=== PATIENT | female | born 1965 | race Caucasian/White ===

== ENCOUNTER → 2017-07-13 | Day surgery (SDC) | payer BC ==
[2017-07-09 12:01] VITALS: Ht 162.6 cm; Wt 93.2 kg
[~2017-07-13] VITALS: Ht 162.6 cm; Wt 93.2 kg
[~2017-07-13] MED LIST: 500ML BSSPLUS 0.5ML EPI1:1000 IRRIG ONE; ACETAMINOPHEN 325 MG TAB PO PRN; AMLO-114 PO; ATOR-22 PO; ATROPINE SULFATE 0.1 MG/ML 5ML SYR IV PRN; ATROPINE SULFATE 1% OP OINT PER APPLICATION CHARGE ONE; ATROPINE SULFATE 1% OP SOLN 2 ML BTL ONE; BSS FLUSH ONE; BUPIVACAINE HCL 0.75% 10 ML AMP/VIAL ONE; CANA1TAB3 PO; CARV6.252 PO; CEFAZOLIN SOD 1 GM VIAL ONE; CYM/30 PO; DEXAMETHASONE SOD INJ 4 MG/ML VIAL ONE; DULO60CA44 PO; EpINEphrine INJ 1MG/ML AMP 1 MG/ML AMP ONE; FENTANYL CITRATE INJ 50 MCG/1 ML 2 ML VIAL IV PRN; FENTANYL CITRATE INJ 50 MCG/1 ML 2 ML VIAL ONE; FRS/40 PO; GLIP-197 PO; HYALURONIDASE HUMAN 150 UNIT/ML INJ ONE; LACTATED RINGER'S 1000ML 500 ML IV SCH; LIDOCAINE 2% 20 MG/ML 5ML SYR IV ONE; LIDOCAINE HCL 2% 2 ML VIAL (20MG/ML) ONE; LINA1TAB PO; LISI40TA PO; METF-384 PO; MIDAZOLAM HCL 1 MG/ML 2ML VIAL ONE; NEOMYCIN/POLYMYX/DEXAMETH OP OINT PER APP CHARGE ONE; OCUCOAT 1 ML SOLN IO ONE; ONDANSETRON INJ 2 MG/ML 2 ML VIAL IV PRN; ONDANSETRON INJ 2 MG/ML 2 ML VIAL ONE; POVIDONE-IODINE OP SOLN (SURGERY CNTR CHARGING ONLY) ONE; PROPARACAINE 0.5% OP SOLN PER DROP CHARGE OPR SCH; PROPOFOL IV EMULSION 10 MG/ML 20 ML VIAL IV ONE; TIMOLOL MALEATE 0.5% OP SOLN PER DROP CHARGE ONE
[2017-07-13] MEDS: PHENYLEPHRINE HCL 2.5% OP SOLN PER DROP CHARGE OPR SCH ×2 (07:13→07:24)
[2017-07-13] MEDS: TROPICAMIDE 1% OP SOLN PER DROP CHARGE OPR SCH ×2 (07:14→07:25)
--- NOTE | 2017-07-13 07:52 | History & Physical Bridge - [place] ---
H&P Re-Evaluation Bridge Note: Pt has diabetic retinopathy right eye and is having vitrectomy right eye. I have examined the patient, reviewed the History & Physical and in the interval since the performance of the History & Physical I have noted the following changes of clinical significance: No changes noted
--- NOTE | 2017-07-13 08:55 | [facility] Operative Report ---
Operative Report Date of Service Jul 13, 2017. Operative Report PREOPERATIVE DIAGNOSIS: Diabetic retinopathy with vitreous hemorrhage, tractional retinal detachment, right eye. POSTOPERATIVE DIAGNOSIS: same. PROCEDURE: 1. Pars plana vitrectomy, 23 gauge. 2. Membrane segmentation and peeling. 3. Endolaser. All to the right eye. CPT CODE: 73011 SURGEON: Perez Asher D.O. COMPLICATIONS: None. ESTIMATED BLOOD LOSS: None. SPECIMENS: None. ANESTHESIA: Retrobulbar block and MAC INDICATIONS FOR PROCEDURE: Surgery is indicated to decrease risk of vision loss and potentially improve vision. CONSENT: The risks, benefits and alternatives were discussed with the patient including but not limited to decreased visual acuity, failure to achieve desired results, loss of the eye, infection, pain, glaucoma, lens changes, retinal tears, retinal detachment, the need for more procedures, drooping of the eyelid, blindness, and double vision. The patient is aware of risks and consents to the surgery. Consent is signed and on the chart. OPERATION AND FINDINGS: The patient was brought to the operating room where the patient was identified by name, date, and medical record number. The surgical site was confirmed with the informed written consent. The patient was sedated by the anesthesiology team after which a 50:50 mixture of 2% lidocaine and 0.75% bupivacaine with hyaluronidase was administered in a standard retrobulbar fashion. A total of 4 ml was administered without difficulty. The patient was then prepped and draped in the usual sterile manner for retinal surgery. A wire lid speculum was placed and an Venkat 23-gauge trocar cannula system was employed. The inferior temporal trocar cannula was first placed in an angled fashion 3.75mm posterior to the surgical limbus and the infusion cannula was inserted into this cannula after which the intravitreal position was verified prior to turning the infusion on. Two more trocar cannulas were then inserted in an angled fashion, one in the superior temporal, and one in the superior nasal quadrant both 3.75mm posterior to the surgical limbus. A light pipe and vitrector were then introduced into the eye and the BIOM wide angle viewing system was brought into place. Posterior inspection revealed proliferative diabetic retinopathy with focal tractional retinal detachment along the superior arcade with neovascularization tags superior and inferior to the temporal arcades as well as nasal to the optic nerve. There was also noted previous laser treatment. Standard core vitrectomy was performed and the vitreous was segmented from the fibrovascular membranes and their peripheral traction. The vitreous was insured to be totally detached from the posterior pole with the aid of the vitrector and the areas of traction were segmented with the vitrector. Intraocular cautery was applied to theses areas. Endolaser was used to perform fill-in brennan retinal photocoagulation. At this point scleral depression was performed for 360 degrees and no retinal tears or detachments were noted. The trocar cannulas were then removed and found to be water tight. The intraocular pressure was found to be within normal limits by palpation and subconjunctival injections of Kefzol and dexamethasone were administered inferiorly and superiorly. The wire lid speculum was removed. Maxitrol and timolol were applied to the surface of the eye. A light patch and shield were taped over the surface of the eye and the patient left the Operating Room in stable condition having tolerated the procedure well. DISPOSITION: The patient has an appointment the following morning in the Ophthalmology Clinic. The patient is to call immediately if there are any problems overnight. I attest to the content of the Intraoperative Record and any orders documented therein. Any exceptions are noted below.
--- NOTE | 2017-07-13 08:56 | [facility] Post Operative Brief Note ---
Immediate Operative Summary Operative Date Jul 13, 2017. Pre-Operative Diagnosis Right Eye Diabetic Retinopathy Post-Operative Diagnosis Same Procedure(s) Performed Right Eye 23 Gauge Vitrectomy with Laser Surgeon Dr. Asher Wood Car Builder Surgeon(s) None Estimated Blood Loss 0 Findings Consistent with Post-Op Diagnosis Specimens None Anesthesia Type MAC
--- NOTE | 2017-07-13 09:00 | Discharge Instructions-SurgCtr ---
Discharge Instructions Date of Service Jul 13, 2017. Visit Reason for Visit: Right Eye Diabetic Retinopathy Discharge Discharge Diagnosis / Problem: same Discharge Goals Goal(s): Improve function Medications Stopped Medications Name(s): metformin stopped 3 days ago Activity Recommendations Activity Limitations: per Instructions/Follow-up section Anesthesia . Post Anesthesia Instructions: If you have had General Anesthesia or IV Sedation: * Do not drive today. * Resume driving when surgeon permits. * Do not make important decisions or sign legal documents today. * Call surgeon for: 1. Temperature elevations greater than 101 degrees F. 2. Uncontrollable pain. 3. Excessive bleeding. 4. Persistent nausea and vomiting. 5. Medication intolerance (nausea, vomiting or rash). * For nausea and vomiting use only clear liquids such as: tea, soda, bouillon until nausea subsides, then gradually increase diet as tolerated. * If you have any concerns or questions, call your surgeon's office. If physician is unavailable and it is an emergency, call 911 or go to the nearest emergency room. . Instructions / Follow-Up Instructions / Follow-Up * May take Tylenol if needed for discomfort. * Do NOT remove eye shield. * NO straining, heavy lifting (>15 pounds) or bending below waist. * Avoid getting water or soap directly into operative eye. * Do NOT rub eye. If you experience increasing eye pain not relieved by medication, please contact us immediately at [phone]. If you are unable to reach someone at the above number, call [phone] and ask to speak with the EYE DOCTOR STABLE CLEANER. Inform them that you are a Dr. Asher patient who had recent surgery. Diet Recommendations Home Diet: resume previous diet Procedures Procedures Performed: Right Eye 23 Gauge Vitrectomy with Laser Pending Studies Studies pending at discharge: no Medical Emergencies . Who to Call and When: Medical Emergencies: If at any time you feel your situation is an emergency, please call 911 immediately. . Non-Emergent Contact Non-Emergency issues call your: Gas Station Supervisor . . "Provider Documentation" section prepared by Perez Asher. .
--- NOTE | 2017-07-13 09:16 | Anesthesia Progress Nt - [facility] ---
Anesthesia Post Op Note Date & Time Jul 13, 2017 at 09:16 Vital Signs Pain Intensity: 0 Vital Signs Past 12 Hours Date Time Temp Pulse Resp B/P (MAP) Pulse Ox O2 Delivery O2 Flow Rate FiO2 07/13/17 08:59 36.3 68 16 129/83 (98) 96 Room Air 07/13/17 07:04 36.5 72 16 135/84 (101) 95 Room Air Notes Mental Status: alert / awake / arousable, participated in evaluation Pt Amnestic to Procedure: Yes Nausea / Vomiting: adequately controlled Pain: adequately controlled Airway Patency, RR, SpO2: stable & adequate BP & HR: stable & adequate Hydration State: stable & adequate Anesthetic Complications: no major complications apparent
[2017-07-13 09:17] VITALS: BP 123/85; PULSE 70; O2SAT 95
== END | disposition home or self-care (01) ==
LOC: X.SURG 06:50
PROVIDERS: ATTEND Ophthalmology
DX: E11.319 Type 2 diabetes mellitus with unspecified diabetic retinopathy without macular edema (principal); H43.11 Vitreous hemorrhage, right eye; H33.41 Traction detachment of retina, right eye; I10 Essential (primary) hypertension; Z79.899 Other long term (current) drug therapy; F17.200 Nicotine dependence, unspecified, uncomplicated; E66.9 Obesity, unspecified; Z68.35 Body mass index [BMI] 35.0-35.9, adult; Z83.3 Family history of diabetes mellitus; Z80.9 Family history of malignant neoplasm, unspecified; Z82.0 Family history of epilepsy and other diseases of the nervous system

== ENCOUNTER → 2017-07-27 | Day surgery (SDC) | payer BC ==
[2017-07-23 09:33] VITALS: Ht 162.6 cm; Wt 93.2 kg
[~2017-07-27] VITALS: Ht 162.6 cm; Wt 93.2 kg
[~2017-07-27] MED LIST changes: -CYM/30 PO; -DULO60CA44 PO; +EpHEDrine SULFATE INJ 50 MG/ML AMP IV PRN; -FENTANYL CITRATE INJ 50 MCG/1 ML 2 ML VIAL IV PRN; +INDOCYANINE GREEN 25 MG/10 ML ONE; -LIDOCAINE 2% 20 MG/ML 5ML SYR IV ONE; +LIDOCAINE MPF 4% INJ ONE; -ONDANSETRON INJ 2 MG/ML 2 ML VIAL IV PRN; +PROPARACAINE 0.5% OP SOLN PER DROP CHARGE OPL SCH; -PROPARACAINE 0.5% OP SOLN PER DROP CHARGE OPR SCH; -PROPOFOL IV EMULSION 10 MG/ML 20 ML VIAL IV ONE; +PROPOFOL IV EMULSION 10 MG/ML 20 ML VIAL ONE
[2017-07-27] MEDS: PHENYLEPHRINE HCL 2.5% OP SOLN PER DROP CHARGE OPL SCH ×2 (08:42→08:52)
[2017-07-27] MEDS: TROPICAMIDE 1% OP SOLN PER DROP CHARGE OPL SCH ×2 (08:43→08:53)
--- NOTE | 2017-07-27 10:17 | History & Physical Bridge - [place] ---
H&P Re-Evaluation Bridge Note: pt has diabetic retinopathy left eye and is having vitrectomy left eye. I have examined the patient, reviewed the History & Physical and in the interval since the performance of the History & Physical I have noted the following changes of clinical significance: No changes noted
--- NOTE | 2017-07-27 11:26 | [facility] Post Operative Brief Note ---
Immediate Operative Summary Operative Date Jul 27, 2017. Pre-Operative Diagnosis Left Eye Diabetic Retinopathy Post-Operative Diagnosis Same Procedure(s) Performed Left Eye 23 Gauge Vitrectomy with Laser Surgeon Dr. Asher Finish Carpenter Surgeon(s) None Estimated Blood Loss 0 Findings Consistent with Post-Op Diagnosis Specimens None Anesthesia Type MAC
[2017-07-27 11:28] VITALS: TEMP 36.5
--- NOTE | 2017-07-27 11:35 | [facility] Operative Report ---
Operative Report Date of Service Jul 27, 2017. Operative Report PREOPERATIVE DIAGNOSIS: Diabetic retinopathy with vitreous hemorrhage with tractional retinal detachment, left eye. POSTOPERATIVE DIAGNOSIS: same. PROCEDURE: 1. Pars plana vitrectomy, 23 gauge. 2. Membrane peeling/ segmentation. 3. Endolaser. All to the left eye. CPT CODE: 66901 SURGEON: Perez Asher D.O. COMPLICATIONS: None. ESTIMATED BLOOD LOSS: None. SPECIMENS: None. ANESTHESIA: Retrobulbar block and MAC INDICATIONS FOR PROCEDURE: Surgery is indicated to decrease risk of vision loss and potentially improve vision. CONSENT: The risks, benefits and alternatives were discussed with the patient including but not limited to decreased visual acuity, failure to achieve desired results, loss of the eye, infection, pain, glaucoma, lens changes, retinal tears, retinal detachment, the need for more procedures, drooping of the eyelid, blindness, and double vision. The patient is aware of risks and consents to the surgery. Consent is signed and on the chart. OPERATION AND FINDINGS: The patient was brought to the operating room where the patient was identified by name, date, and medical record number. The surgical site was confirmed with the informed written consent. The patient was sedated by the anesthesiology team after which a 50:50 mixture of 2% lidocaine and 0.75% bupivacaine with hyaluronidase was administered in a standard retrobulbar fashion. A total of 4 ml was administered without difficulty. The patient was then prepped and draped in the usual sterile manner for retinal surgery. A wire lid speculum was placed and an Venkat 23-gauge trocar cannula system was employed. The inferior temporal trocar cannula was first placed in an angled fashion 3.75mm posterior to the surgical limbus and the infusion cannula was inserted into this cannula after which the intravitreal position was verified prior to turning the infusion on. Two more trocar cannulas were then inserted in an angled fashion, one in the superior temporal, and one in the superior nasal quadrant both 3.75mm posterior to the surgical limbus. A light pipe and vitrector were then introduced into the eye and the BIOM wide angle viewing system was brought into place. Posterior inspection revealed partially regressed proliferative diabetic retinopathy and with neovascularization tags superior and inferior to the temporal arcades with associated tractional retinal detachment. 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 Standard core vitrectomy was performed and the vitreous was insured to be totally detached from the posterior pole with the aid of the vitrector. the areas of regressed neovascularization were segmented with the vitrector. Endolaser was used to perform fill-in brennan retinal photocoagulation. The areas of traction were segmented and peeled with the vitrector and intraocular cautery was used to stop any bleeding from active neovascularization. At this point scleral depression was performed for 360 degrees and no retinal tears or detachments were noted. The trocar cannulas were then removed and found to be water tight. The intraocular pressure was found to be within normal limits by palpation and subconjunctival injections of Kefzol and dexamethasone were administered inferiorly and superiorly. The wire lid speculum was removed. Maxitrol was applied to the surface of the eye. A light patch and shield were taped over the surface of the eye and the patient left the Operating Room in stable condition having tolerated the procedure well. DISPOSITION: The patient has an appointment the following morning in the Ophthalmology Clinic. The patient is to call immediately if there are any problems overnight. I attest to the content of the Intraoperative Record and any orders documented therein. Any exceptions are noted below.
--- NOTE | 2017-07-27 11:46 | Discharge Instructions-SurgCtr ---
Discharge Instructions Date of Service Jul 27, 2017. Visit Reason for Visit: Left Eye Diabetic Retinopathy Discharge Discharge Diagnosis / Problem: same Discharge Goals Goal(s): Improve function Medications Stopped Medications Name(s): Metfromin stopped . Activity Recommendations Activity Limitations: per Instructions/Follow-up section Anesthesia . Post Anesthesia Instructions: If you have had General Anesthesia or IV Sedation: * Do not drive today. * Resume driving when surgeon permits. * Do not make important decisions or sign legal documents today. * Call surgeon for: 1. Temperature elevations greater than 101 degrees F. 2. Uncontrollable pain. 3. Excessive bleeding. 4. Persistent nausea and vomiting. 5. Medication intolerance (nausea, vomiting or rash). * For nausea and vomiting use only clear liquids such as: tea, soda, bouillon until nausea subsides, then gradually increase diet as tolerated. * If you have any concerns or questions, call your surgeon's office. If physician is unavailable and it is an emergency, call 911 or go to the nearest emergency room. . Instructions / Follow-Up Instructions / Follow-Up * May take Tylenol if needed for discomfort. * Do NOT remove eye shield. * NO straining, heavy lifting (>15 pounds) or bending below waist. * Avoid getting water or soap directly into operative eye. * Do NOT rub eye. If you experience increasing eye pain not relieved by medication, please contact us immediately at [phone]. If you are unable to reach someone at the above number, call [phone] and ask to speak with the EYE DOCTOR HEALTHCARE RECEPTIONIST. Inform them that you are a Dr. Asher patient who had recent surgery. Diet Recommendations Home Diet: resume previous diet Procedures Procedures Performed: Left Eye 23 Gauge Vitrectomy with Laser Pending Studies Studies pending at discharge: no Medical Emergencies . Who to Call and When: Medical Emergencies: If at any time you feel your situation is an emergency, please call 911 immediately. . Non-Emergent Contact Non-Emergency issues call your: Hide Trimmer . . "Provider Documentation" section prepared by Perez Asher. .
--- NOTE | 2017-07-27 11:56 | Anesthesiology Progress Note ---
Anesthesia Post Op Note Date & Time Jul 27, 2017 at 11:55 Vital Signs Pain Intensity: 0 Vital Signs Past 12 Hours Date Time Temp Pulse Resp B/P (MAP) Pulse Ox O2 Delivery O2 Flow Rate FiO2 07/27/17 11:28 36.5 83 16 148/84 (105) 94 Room Air 07/27/17 08:33 36.6 74 16 154/102 (119) 96 Room Air Notes Mental Status: alert / awake / arousable, participated in evaluation Nausea / Vomiting: adequately controlled Pain: adequately controlled Airway Patency, RR, SpO2: stable & adequate BP & HR: stable & adequate Hydration State: stable & adequate Anesthetic Complications: no major complications apparent
[2017-07-27 11:57] VITALS: BP 136/84; PULSE 77; O2SAT 95
== END | disposition home or self-care (01) ==
LOC: X.SURG 08:20
PROVIDERS: ATTEND Ophthalmology
DX: E11.3592 Type 2 diabetes mellitus with proliferative diabetic retinopathy without macular edema, left eye (principal); H43.12 Vitreous hemorrhage, left eye; H33.42 Traction detachment of retina, left eye; E66.9 Obesity, unspecified; K21.9 Gastro-esophageal reflux disease without esophagitis; E78.5 Hyperlipidemia, unspecified; I10 Essential (primary) hypertension; Z79.899 Other long term (current) drug therapy; Z79.84 Long term (current) use of oral hypoglycemic drugs; Z87.891 Personal history of nicotine dependence

== ENCOUNTER 2024-01-23 17:28 | Inpatient (IN) ==
--- NOTE | 2024-01-23 17:42 | Emergency Department Note ---
Impression & Plan Acute hypoxic respiratory failure, Pleural effusion, Congestive heart failure ED Provider Note NAME: ORLY SAMANIEGO AGE: 58 SEX: F : 1965 ARRIVES VIA: Ambulance INFORMANT: Patient ED PROVIDER(S): Elbert Tinoco DO CHIEF COMPLAINT: Shortness of breath HPI: Patient is a 58-year-old female who presents to the ER for shortness of breath which started just prior to arrival. Per EMS she was found at heart side without her oxygen in place. She chronically wears 3 L. She was placed on 3 L nasal cannula and transported to the ER. Patient is completely demented and denies all complaints. Discussed with heart side staff who notes that yesterday patient became short of breath and was started on 3 L nasal cannula. They gave her steroids and Rocephin. No cough that she is aware of. ADDITIONAL HISTORY OBTAINED: Per HPI Chronic Medical/Social Conditions Affecting Care: Per HPI PAST MEDICAL HISTORY:See Below PAST SURGICAL HISTORY:See Below FAMILY HISTORY:See Below SOCIAL HISTORY:See Below HOME MEDICATIONS:See Below ALLERGIES:See Below VITALS:See Below PHYSICAL EXAMINATION: GENERAL: Sitting up in bed, alert, chronically ill-appearing, disheveled on 3 L nasal cannula EYE EXAM: normal conjunctiva. PERRL and EOM's grossly intact. OROPHARYNX: no exudate, no erythema, lips, buccal mucosa, and tongue normal and mucous membranes are moist NECK: supple, no nuchal rigidity, no adenopathy, non-tender LUNGS: Diminished at the bases. Normal chest wall mechanics HEART: no murmurs, S1 normal and S2 normal ABDOMEN: abdomen soft, non-tender, PEG tube in place, normo-active bowel sounds, no masses, no rebound or guarding. UPPER EXTREMITIES: upper extremities are grossly normal. LOWER EXTREMITIES: Mild edema in the bilateral lower extremities. Calves are equal bilaterally. NEURO EXAM: Sitting up in bed oriented to person but not place or time moving all extremities. MEDICAL DECISION MAKING: Patient is a 58-year-old female who presents ER for the above-stated complaint. IV was established and blood work was obtained. Labs show no significant leukocytosis or anemia. BMP with a elevated sodium of 146. Creatinine 1.7. LFTs bilirubin was unremarkable. Troponin negative. Viral panel was negative. Chest x-ray with bilateral pleural effusions. Patient remained on nasal cannula in the ER. She was given Lasix. Discussed with the hospitalist for further evaluation management treatment. Just prior to admission patient pulled out her PEG tube. I contacted intermediate and they note that she has had it the whole time since she has been there but they are unsure of how long she has had it. I contacted GI and they would prefer that we try to replace it now. Used a Shafer to hold its place until we are able to obtain an 18 [place]ones[place] G-tube from the OR. This was inserted without difficulty. There was bleeding at the site as patient had pulled out her previous which was intact. GI will follow this tomorrow morning. Hospitalist was updated. Patient was admitted on nasal cannula. Consults/Care Managements Discussions: Per [facility] Triage Nursing notes reviewed. Limited review of prior medical records performed Vital Signs: reviewed and remarkable for no significant abnormalities Differential diagnosis: Differential diagnoses includes but is not limited to pneumonia, bronchitis, COPD/Asthma exacerbation, pneumothorax, pulmonary embolism, congestive heart failure, acute coronary syndrome ER treatment provided: See below Diagnostics interpreted by me include EKG and cardiac monitoring as listed below: -Cardiac Monitoring: An order was placed for continuous cardiac monitoring. The monitor shows a rate of 70 with sinus rhythm. -ECG: Sinus rhythm rate 72 Normal axis No PVCs QTc 448 Poor baseline in V6 and V3 -Laboratory studies:Interpreted by me as stated above in [facility] and shown below. Imaging studies: Xrays: As interpreted by me: Portable AP upright 1 view shows bilateral effusions CTs show: none Procedures: G-tube replacement Patient was demented and consequently unable to obtain consent but this was replaced emergently as I did not want to hold closing. After discussion with gastroenterology 18 [place]onese G-tube was lubricated and slid into gastric opening. Balloon was inflated with 20 cc of saline. Stopper was slid against abdominal wall. This was not tight but rather loose. It was placed with the end of the stopper at the 18 [place] writing as the depth marker was not visible due to the thick abdominal wall. Patient tolerated the procedure without difficulty. This was confirmed via KUB with [facility]. Critical Care: I have personally spent 35 minutes of critical care time in the direct management of this patient. This includes bedside care, interpretation of diagnostic studies, and testing, discussion with consultants, patient, and family members, and other required patient management activities. This 35 minutes is in excess of all separately billable procedures. Past Med/Surg History Problem List (Updated 01/23/24 @ 22:39 by Elbert Tinoco DO) Congestive heart failure (Acute) Acute hypoxic respiratory failure (Acute) HTN (hypertension) Pleural effusion (Acute) Acute exacerbation of congestive heart failure Encounter for pre-operative examination Medical History (Updated 01/23/24 @ 22:39 by Elbert Tinoco DO) Diabetes mellitus, type 2 Vitreous hemorrhage Surgical History History of esophagogastroduodenoscopy (EGD) History of colonoscopy History of hysterectomy Family History Father Cancer Mother Cancer Social History Smoking Status: Unknown if ever smoked Second Hand Exposure: No; Do You Dip or Chew Tobacco: No; Hx Alcohol Use: No Hx Substance Use: No Preferred Language: Frisian Communication Ability: Effective I&C Tech Required: No Beliefs That Will Affect Care: None Current Living Situation: Spouse Feels Safe at Home: Yes Assistive Devices: Denture - Upper and Denture - Lower Allergies Allergies Allergy/AdvReac Type Severity Reaction Status Date / Time No Known Drug Allergies Allergy Unknown . Verified 10/25/18 08:01 Home Meds Home Medications Medication Instructions Recorded Confirmed carvedilol 12.5 mg tablet 25 mg PO Q12H 10/11/18 01/23/24 duloxetine 30 mg capsule,delayed 30 mg PO DAILY 10/11/18 01/23/24 release lisinopril 40 mg tablet 40 mg PO DAILY 10/11/18 01/23/24 bisacodyl 10 mg rectal suppository 10 mg ME Q48H PRN Constipation 01/23/24 01/23/24 (Dulcolax (bisacodyl)) ceftriaxone 1 gram solution for 1 g IM Q24H 01/23/24 01/23/24 injection dextrose 40 % oral gel See Rx Instructions .Route .COMPLEX 01/23/24 01/23/24 famotidine 20 mg tablet 20 mg PO DAILY 01/23/24 01/23/24 glucagon 1 mg solution for 1 mg IM DIRECTED PRN 01/23/24 01/23/24 injection (Glucagon Emergency Kit) Hypoglycemia guaifenesin 1,200 mg tablet, 400 mg PO Q12H 01/23/24 01/23/24 extended release 12 hr (Mucinex) haloperidol 2 mg tablet 2 mg PO Q12H 01/23/24 01/23/24 insulin glargine 100 unit/mL (3 5 unit subcut HS 01/23/24 01/23/24 mL) subcutaneous pen (Lantus Solostar U-100 Insulin) insulin lispro 100 unit/mL See Rx Instructions .Route .COMPLEX 01/23/24 01/23/24 subcutaneous pen (Humalog KwikPen (U-100) Insulin) ipratropium 0.5 mg-albuterol 3 mg 3 ml inhalation Q4H 01/23/24 01/23/24 (2.5 mg base)/3 mL nebulization soln lisinopril 40 mg tablet 40 mg PO DAILY 01/23/24 01/23/24 magnesium hydroxide 400 mg/5 mL 30 ml PO Q48H PRN Constipation 01/23/24 01/23/24 oral suspension (Milk of Magnesia) magnesium oxide 400 mg PO DAILY 01/23/24 01/23/24 metformin 500 mg tablet 500 mg PO BID 01/23/24 01/23/24 polyethylene glycol 3350 17 gram 17 g PO DAILY 01/23/24 01/23/24 oral powder packet prednisone 20 mg tablet 40 mg PO DAILY 01/23/24 01/23/24 rivastigmine 4.6 mg/24 hour 4.6 mg transdermal DAILY 01/23/24 01/23/24 transdermal patch (Exelon Patch) sodium phosphates 19 gram-7 118 ml ME Q48H PRN Constipation 01/23/24 01/23/24 gram/118 mL enema (Enema) valproic acid (as sodium salt) 250 250 mg PO Q12H 01/23/24 01/23/24 mg/5 mL oral solution Results & Data (ED) Vital Signs Vital Signs - 24 hr 01/23/24 17:34 01/23/24 17:46 01/23/24 17:46 Temperature 36 C L Temperature Source Axillary Pulse Rate 84 Pulse Rate [Apical] Respiratory Rate 97 H Blood Pressure 172/109 H Blood Pressure [Left Arm] Blood Pressure Mean 130 Blood Pressure Mean [Left Arm] Pulse Oximetry 20 L 98 Oxygen Delivery Method Nasal Cannula Nasal Cannula Oxygen Flow Rate 3 3 Sepsis Recent Fever Within 48 Hours No Sepsis New/Unexplained Change in Mental Status N/A Sepsis Action Taken by Nursing No Action Required Pulse Oximetry Post Tiitration 98 01/23/24 17:48 01/23/24 18:35 01/23/24 20:16 Temperature Temperature Source Pulse Rate 71 Pulse Rate [Apical] 72 76 Respiratory Rate 20 18 Blood Pressure Blood Pressure [Left Arm] 178/91 H 175/97 H Blood Pressure Mean Blood Pressure Mean [Left Arm] 120 123 Pulse Oximetry 98 93 Oxygen Delivery Method Nasal Cannula Nasal Cannula Oxygen Flow Rate 3 3 Sepsis Recent Fever Within 48 Hours Sepsis New/Unexplained Change in Mental Status Sepsis Action Taken by Nursing Pulse Oximetry Post Tiitration 01/23/24 21:40 Temperature Temperature Source Pulse Rate 73 Pulse Rate [Apical] Respiratory Rate Blood Pressure Blood Pressure [Left Arm] Blood Pressure Mean Blood Pressure Mean [Left Arm] Pulse Oximetry Oxygen Delivery Method Oxygen Flow Rate Sepsis Recent Fever Within 48 Hours Sepsis New/Unexplained Change in Mental Status Sepsis Action Taken by Nursing Pulse Oximetry Post Tiitration Laboratory Data 01/23/24 18:02 01/23/24 18:02 Lab Results 01/23/24 01/23/24 Range/Units 18:02 20:11 WBC 7.33 (4.8-10.8) K/ul RBC 4.59 (4.20-5.40) M/uL Hgb 13.2 (12.0-16.0) g/dl Hct 43.9 (37.0-47.0) % MCV 95.6 (80.0-100.0) fL MCH 28.8 (25.0-34.0) pg MCHC 30.1 L (32.0-36.0) g/dL RDW Std Deviation 59.6 H (36.4-46.3) fL RDW Coeff of Laura 17.2 H (11.5-14.5) % Plt Count 347 (130-400) K/uL MPV 9.9 (9.4-12.4) fL Immature Gran % (Auto) 1.0 % Neut % (Auto) 87.6 % Lymph % (Auto) 6.5 % [place] % (Auto) 4.8 % Eos % (Auto) 0.0 % Baso % (Auto) 0.1 % Neut # (Auto) 6.42 (1.40-6.50) K/uL Lymph # (Auto) 0.48 L (1.20-3.40) K/uL [place] # (Auto) 0.35 (0.11-0.59) K/uL Eos # (Auto) 0.00 (0.00-0.50) K/uL Baso # (Auto) 0.01 (0.00-0.20) K/uL Immature Gran # (Auto) 0.07 (0.01-0.20) K/uL Sodium 146 H (136-145) mmol/L Potassium 4.6 (3.5-5.1) mmol/L Chloride 104 (98-107) mmol/L Carbon Dioxide 34 H (21-32) mmol/L Anion Gap 8 (3-11) BUN 31 H (6-23) mg/dl Creatinine 1.75 H (0.6-1.2) mg/dl Est Cr Clr Drug Dosing 33.5 ml/min eGFR 33.36 BUN/Creatinine Ratio 17.7 (10-20) Glucose 273 H (70-99(Fasting)) mg/dl Calcium 9.9 (8.6-10.3) mg/dl Total Bilirubin 0.3 (0.2-1.0) mg/dl AST 9 L (13-39) U/L ALT 10 (7-52) U/L Alkaline Phosphatase 137 H (34-104) U/L Troponin I High Sens 12.1 (0-14) pg/ml Total Protein 7.2 (6.0-8.3) gm/dl Albumin 3.7 (3.4-5.0) gm/dl Globulin 3.5 (2.5-4.0) gm/dl Albumin/Globulin Ratio 1.1 (0.9-2) Lipase 5 L (11-82) U/L Adenovirus (PCR) Not Detected (NotDetected) B. pertussis DNA (PCR) Not Detected (NotDetected) B.parapertussis DNA PCR Not Detected (NotDetected) C. pneumoniae DNA (PCR) Not Detected (NotDetected) Coronavirus OC43 (PCR) Not Detected (NotDetected) Coronavirus HKU1 (PCR) Not Detected (NotDetected) Coronavirus 229E (PCR) Not Detected (NotDetected) SARS-CoV-2 (PCR) Not Detected (NotDetected) Coronavirus NL63 (PCR) Not Detected (NotDetected) Human Metapneumovir PCR Not Detected (NotDetected) Influenza Type A (PCR) Not Detected (NotDetected) Influenza Type B (PCR) Not Detected (NotDetected) M. pneumoniae (PCR) Not Detected (NotDetected) Parainfluenza 1 (PCR) Not Detected (NotDetected) Parainfluenza 2 (PCR) Not Detected (NotDetected) Parainfluenza 3 (PCR) Not Detected (NotDetected) Parainfluenza 4 (PCR) Not Detected (NotDetected) RSV (PCR) Not Detected (NotDetected) Entero/Rhino (PCR) Not Detected (NotDetected) Administered Medications Discontinued Medications Furosemide (Furosemide 40 Mg/4 Ml Vial) 40 mg IV NOW STA Stop: 01/23/24 18:45 Last Admin: 01/23/24 19:18 Dose: 40 mg Documented By: NII Imaging Data Radiologist's Impression: Chest X-Ray 01/23/24 17:39 XR chest 1V portable HISTORY: 58 years-old Female Chest pain, nonspecific COMPARISON: None TECHNIQUE: AP view the chest FINDINGS: Cardiac silhouette is enlarged. Pulmonary vascular congestion with interstitial opacities. No pneumothorax. [id number]-sa-[id number] left with large right pleural effusions. Bibasilar consolidation with right lung volume loss. IMPRESSION: 1. Cardiomegaly with pulmonary edema. 2. Right greater than left layering pleural effusions with bibasilar consolidation. ACT 112: Negative or not required by law. The above report was generated using voice recognition software. It may contain grammatical, syntax or spelling errors. Electronically signed by: Sudhakar Ellis M.D. 01/23/2024 6:14 PM Discharge Plan Visit Data Chief Complaint: Shortness of Breath/Dyspnea Stated Complaint: HYPOXIA ED Provider: Elbert Tinoco Discharge Problem: Acute hypoxic respiratory failure, Pleural effusion, Congestive heart failure Forms Stand Alone Forms: My [facility] Prescriptions Prescriptions: No Action carvedilol 12.5 mg Tablet 25 mg PO Q12H lisinopril 40 mg Tablet 40 mg PO DAILY duloxetine 30 mg Capsule,Delayed Release(Dr/Ec) 30 mg PO DAILY metformin 500 mg tablet 500 mg PO BID ipratropium-albuterol 0.5 mg-3 mg(2.5 mg base)/3 mL solution for nebulization 3 ml INHALATION Q4H polyethylene glycol 3350 17 gram Powder In Packet 17 g PO DAILY prednisone 20 mg Tablet 40 mg PO DAILY dextrose [Insta-Glucose] 40 % Gel See Rx Instructions .ROUTE .COMPLEX Rx Instructions: place and dissolve 1 application buccally as needed for hypoglycemia ceftriaxone 1 gram recon soln 1 g IM Q24H famotidine 20 mg tablet 20 mg PO DAILY magnesium hydroxide [Milk of Magnesia] 400 mg/5 mL Suspension 30 ml PO Q48H PRN (Reason: Constipation) valproic acid (as sodium salt) 250 mg/5 mL solution 250 mg PO Q12H bisacodyl [Dulcolax (bisacodyl)] 10 mg Suppository 10 mg ME Q48H PRN (Reason: Constipation) Enema 19-7 gram/118 mL Enema 118 ml ME Q48H PRN (Reason: Constipation) Glucagon Emergency Kit (human) 1 mg Recon Soln 1 mg IM DIRECTED PRN (Reason: Hypoglycemia) haloperidol 2 mg tablet 2 mg PO Q12H lisinopril 40 mg tablet 40 mg PO DAILY insulin lispro [Humalog KwikPen Insulin] 100 unit/mL insulin pen See Rx Instructions .ROUTE .COMPLEX Rx Instructions: per sliding scale 1f 151 -200=3 units; 201 -250 =6 units; 251 -300 =9; 301 - 400 =12 units; subcutaneously before meals and at bedtime insulin glargine [Lantus Solostar U-100 Insulin] 100 unit/mL (3 mL) insulin pen 5 unit SUBCUT HS rivastigmine [Exelon Patch] 4.6 mg/24 hour Patch 24 Hour 4.6 mg TRANSDERMAL DAILY guaifenesin [Mucinex] 1,200 mg Tablet Extended Release 12hr 400 mg PO Q12H magnesium oxide 400 mg magnesium Tablet 400 mg PO DAILY Referrals Referrals: Berlin Ledezma PA-C [Primary Care Provider] - Discharge Problem: Congestive heart failure Qualifiers: Heart failure type: unspecified Heart failure chronicity: unspecified Qualified Code(s): I50.9 - Heart failure, unspecified
--- OUTSIDE RECORDS SUMMARY | 2024-01-23 17:42 | External Medical Summary | Summary of Care ---
Author Name Unknown Organization [facility] Address [address] [place] [address] Phone [phone] Care Team Providers Care Candy Cutter Hand Name Role Phone Hermann Shields MD Primary Care Provider + [phone] Reason for Visit * Reason Comments Chronic Kidney Disease (CKD) Encounter Details Date Type Department Care Team (Late st Contact Info) Description 01/08/2024 10:40 AM EDT Office Visit Nephrology, [address] [address] Meño Junior MD [address] [place] [address] Stage 3a chronic kidney disease (HCC)*; HTN, goal below 140/90 Allergies No known active allergiesdocumented as of this encounter (statuses as of 01/08/2024) Medications Medication Sig Dispensed Refills Start Date End Date Status Ferrous Gluconate 324 (37.5 Fe) MG Tablet Take 2 Tablets by mouth daily. 0 Active Omeprazole 20 MG Oral Capsule Delayed Release (PriLOSEC) Take 1 Capsule by mouth in the morning. Active Atorvastatin Calcium 40 MG Oral Tablet (Lipitor) Take 1 Tablet by mouth at bedtime. Active Magnesium Oxide 400 MG Oral Capsule Take 1 Capsule by mouth in the morning. 30 Capsule 5 3 Active DULoxetine HCl 30 MG Oral Capsule Delayed Release Particles (Cymbalta) Take 1 Capsule by mouth in the morning. Active Carvedilol 25 MG Oral Tablet (Coreg) Take 1 Tablet by mouth in the morning and 1 Tablet before bedtime. 60 Tablet 1 4 Active oxygen IN GAS Administer 2 L/min(Oxygen) into nostril continuous. 4 Active Torsemide 100 MG Oral Tablet (Demadex) Take 1 Tablet by mouth in the morning. 30 Tablet 1 4 Active Additional Information Patient not taking.Reported on 01/08/2024 busPIRone HCl 5 MG Oral Tablet (Buspar) Take 2 Tablets by mouth in the morning and 2 Tablets before bedtime. Active Polyethylene Glycol 3350 17 GM Oral Packet (MiraLax) Take 1 Packet by mouth in the morning and 1 Packet before bedtime. Active LORazepam 0.5 MG Oral Tablet (Ativan) Take 1 Tablet by mouth every 6 hours as needed. Active Aspirin 81 MG Oral Tablet Chewable Take 1 Tablet by mouth in the morning. 90 Tablet 4 Active Lisinopril 40 MG Oral Tablet Take 1 Tablet by mouth in the morning. Active Rivastigmine 4.6 MG/24HR Transdermal Patch 24 Hour (Exelon) Place 1 Patch topically on the skin in the morning. Active Insulin Glargine 100 UNIT/ML Subcutaneous Solution (Lantus) Inject 15 Units under the skin at bedtime. 10 mL 4 Active Water For Irrigation, Sterile (WATER FLUSH) TF Administer 50 mL into PEG tube every 6 hours. 1 Each 4 Active Nutren 2.0 Oral Liquid Administer 250 mL into PEG tube in the morning and 250 mL at noon and 250 mL before bedtime. 15952 mL 4 12/16/19 25 Active Valproate Sodium 250 MG/5ML Oral Solution (Depakene) Administer 5 mL into PEG tube in the morning and 5 mL before bedtime. 300 mL 4 Active Famotidine 20 MG Oral Tablet (Pepcid) Take 1 Tablet by mouth every evening. 4 Active Insulin Aspart FlexPen 100 UNIT/ML Subcutaneous Solution Pen-injector 4 Active Haloperidol Lactate 5 MG/ML Injection Solution Inject 2.5 mg intravenously as needed for Anxiety. Active Ipratropium-Albut maulik 0.5-2.5 (3) MG/3ML Inhalation Solution (Duoneb) Inhale 3 mL by mouth every 4 hours as needed for Shortness of Breath or Cough. Active Haloperidol 2 MG Oral Tablet (Haldol) Take 1 Tablet by mouth in the morning and 1 Tablet before bedtime. 60 Tablet 4 01/28/20 Active amLODIPine Besylate 5 MG Oral Tablet (Norvasc) Take 1 Tablet by mouth in the morning. 90 Tablet 3 Active Additional Information Patient not taking.Reported on 01/08/2024 Tamsulosin HCl 0.4 MG Oral Capsule (Flomax) Take 1 Capsule by mouth in the morning. 90 Capsule 3 4 01/08/20 Discontinued documented as of this encounter (statuses as of 01/08/2024) Active Problems Problem Noted Date Diagnosed Date Pleural effusion, bilateral 12/20/2023 Hyperammonemia 12/17/2023 Valproic acid toxicity 12/17/2023 Accidental poisoning by anticonvulsant Overdose, accidental or unintentional, initial e ncounter 12/16/2023 Dementia with agitation 12/12/2023 Acute cystitis without hematuria 11/30/2023 Acute on chronic diastolic (congestive) heart fa ilure 11/09/2023 AMS (altered mental status) 11/06/2023 Fever 11/06/2023 Encounter for feeding tube placement 09/21/2023 History of CVA (cerebrovascular accident) [address] 09/01/2023 Vomiting 08/13/2023 PEG (percutaneous endoscopic gastrostomy) status 08/11/2023 Nocturnal hypoxia 08/08/2023 Expressive aphasia 08/05/2023 Goals of care, counseling/discussion 08/05/2023 Palliative care encounter 08/05/2023 Failure to thrive in adult 08/04/2023 Difficulty swallowing 08/04/2023 Stroke 07/28/2023 Moderate pulmonary hypertension 07/07/2023 PARUL (acute kidney injury) 07/04/2023 Pleural effusion 07/04/2023 Dementia of frontal lobe type 07/03/2023 Neurocognitive disorder 07/03/2023 Anemia associated with stage 3 chronic renal maura lure 07/02/2023 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, with psychotic disturbance 07/02/2023 Fall at home 07/01/2023 Acute respiratory failure with hypoxia History of spontaneous intra parenchymal intracranial hemorrhage 07/01/2023 Non compliance w medication regimen 07/01/2023 Food insecurity 11/05/2020 Overview: Per [facility] Protocol Stage 3b chronic kidney disease 09/11/2020 Overview: Per CKD protocol Type 2 diabetes mellitus wit h hyperosmolarity without coma, without long-term current use of insulin 08/07/2020 Overview: Per CKD protocol 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 Chronic diastolic heart failure 12/20/2019 Obesity, Class III, BMI 40-49.9 (morbid obesity) 10/28/2019 Type 2 diabetes mellitus wit h hemoglobin A1c goal of less than 7.0% 09/18/2019 Hypertension, uncontrolled 09/18/2019 HLD (hyperlipidemia) 09/18/2019 documented as of this encounter (statuses as of 01/08/2024) Resolved Problems Problem Noted Date Diagnosed Date Resolved Date Acute on chronic respiratory failure with hypoxia 12/19/2023 12/24/2023 Aspiration pneumonia 09/05/2023 024 Elevated troponin 09/02/2023 09/05/2023 Atypical chest pain 09/01/2023 09/05/19 24 Malnutrition of moderate degree 08/05/2023 09/02/2023 Delirium due to general medical condition 07/03/2023 07/05/2023 Acute on chronic heart failu re with preserved ejection fraction (HFpEF) 07/01/2023 09/05/2023 Somnolence 07/01/2023 07/02/2023 UTI (urinary tract infection) 07/01/2023 07/05/2023 Acute metabolic encephalopathy 02/02/2023 02/11/2023 Intraparenchymal hemorrhage of brain 02/01/2023 07/02/2023 Hypertensive emergency 02/01/202302/05 Intraventricular hemorrhage 02/01/2023 02/11/2023 Dehydration 08/01/2020 07/02/2023 Diabetes mellitus with stage 3 chronic kidney disease 03/12/2020 08/09/2020 Overview: Per CKD protocol Encounter for examination fo r normal comparison and control in clinical research program 03/05/2020 06/04/2021 Overview: [facility]: A Randomized Controlled Trial (Project # [id number]). The [facility] [employer] program provides food-insecure diabetics with healthy food for their entire household (2 meals/ day X 5 days/week). The program also provides education on food preparation, healthy living, and diabetes self management. The research measures the effects of the program on patient health and wellbeing. Subject will begin the [facility] program February 2020 Contact Information: Braille Coder: Dr. Sourav Loco ([phone]) CRC: Sharlene Ortiz ([phone]) RA: Gracie Tejeda ([phone]) Diagnosis changed due to Research Module. Go to Snapshot for study details. 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 07/02/2023 Seizure-like activity 09/18/20192022 documented as of this encounter (statuses as of 01/08/2024) Immunizations Name Administration Dates Next Due COVID-19, MRNA-LNP, 23-24, P F, 50 MCG/0.5 mL, 12 YRS AND ABOVE, IM (MODERNA-Spikevax) 05/14/2021,09/06/2020,08/06/2020 documented as of this encounter Social History Tobacco Use Types Packs/Day Years Used Date Smoking Tobacco: Former Cigarettes 1 10 Smokeless Tobacco: Never Comments:quit Alcohol Use Standard Drinks/Week Comments No 0 (1 standard drink = 0.6 oz pur e alcohol) Utilities Answer Date Recorded Do you have trouble paying y our heating, water, or electric bill? (Adult - for ages 18 years and over) Not on file 09/15/2023 Is your family able to pay t he heat, water, or electric bill? (Household - for ages 0-17 years) Not on file 09/15/2023 Does your family have access to good internet? (Household - for ages 0-17 years) Not on file 09/15/2023 Social Connections Answer Date Recorded How often do you feel lonely or isolated from those around you? (Adult - for ages 18 years and over) Not on file 09/15/2023 Sex and Gender Information Value Date Recorded Sex Assigned at Not on file Gender Identity Not on file Sexual Orientation Not on file Job Start Date Occupation Industry Not on file Not on file Not on file documented as of this encounter Last Filed Vital Signs Vital Sign Reading Time Taken Comments Blood Pressure 156/87 01/08/2024 10:51 AM EDT Pulse 68 01/08/2024 10:51 AM EDT Temperature 36.6 C (97.9 F) 01/08/2024 10:51 AM E DT Respiratory Rate 18 01/08/2024 10:51 AM EDT Oxygen Saturation 91% 01/08/2024 10:51 AM EDT Inhaled Oxygen Concentration - - Weight 78.5 kg (173 lb) 01/08/2024 10:51 AM EDT Height - - Body Mass Index 29.7 12/29/2023 2:53 PM EDT documented in this encounter Functional Status Functional Status Response Date of Assess ment Are you deaf or do you have serious difficulty h earing? No 11/06/2023 Are you blind or do you have serious difficulty seeing, even when wearing glasses? No 11/06/2023 Do you have serious difficul ty walking or climbing stairs? (5 years old or older) Yes 11/06/2023 Do you have difficulty dress ing or bathing? (5 years old or older) Yes 11/06/2023 Because of a physical, menta l, or emotional condition, do you have difficulty doing errands alone such as visiting a doctor s office or shopping? (15 years old or older) Yes 11/06/19 Cognitive Status Response Date of Assessm ent Because of a physical, menta l, or emotional condition, do you have serious difficulty concentrating, remembering, or making decisions? (5 years old or older) Yes 11/06/2023 documented as of this encounter Progress Notes * Meño Junior MD - 01/08/2024 10:48 AM EDT REASON FOR VISIT: CKD HPI: Priya Clark is a 58 year old female seen in follow-up. Past medical history includes CKD stage 3,Nephrolithiasis, type 2 diabetes for over 10yrs with retinopathy and neuropathy, CVA with expressive aphasia, diastolic CHF, chronic inman catheter, recent PEG tube placement due to failure to thriveand [facility]. She was also found to have a right-sided proteinaceous cyst measuring 1.8 cm on MRI kidney in February 2019. Patient recently hospitalized after pulling out PEG tube. Last visit was September 2023. Patient hospitalized on 12/18/2023 with accidental Depakote overdose. Patient improved with supportive management and did not require dialysis. Patient gets intermittently agitated. 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 Chronic diastolic heart failure ([facility]) 12/20/2019 Chronic kidney disease, stage 3b ([facility]) 09/11/2020 Per CKD protocol CKD (chronic kidney disease) stage 3, GFR 30-59 ml/min ([facility]) 10/28/2019 Diabetes type 2, controlled ([facility]) Hyperlipidemia Hypertension Malnutrition of moderate degree ([facility]) 08/05/2023 PDR (proliferative diabetic retinopathy) ([facility]) Vitreous hemorrhage, right ([facility]) Review of Systems: Unable to obtain due to altered mental status and agitation Family History Problem Relation Name Age of Onset Diabetes Sister Parkinsonism Brother Cancer Mother Cancer Father Social History Socioeconomic History Marital status: Spouse name: Not on file Number of children: Not on file Years of education: Not on file Highest education level: Not on file Occupational History Not on file Tobacco Use Smoking status: Former Current packs/day: 1.00 Average packs/day: 1 pack/day for 10.0 years (10.0 ttl pk-yrs) Types: Cigarettes Smokeless tobacco: Never Tobacco comments: quit 1990s Substance and Sexual Activity Alcohol use: No Drug use: No Sexual activity: Yes Partners: Male control/protection: Surgical Other Topics Concern Not on file Social History Narrative Not on file Social Determinants of Health Financial Resource Strain: Not on file Food Insecurity: Not on file Transportation Needs: Not on file Social Connections: Unknown (09/15/2023) Social Connections How often do you feel lonely or isolated from those around you? (Adult - for ages 18 years and over): Not on file Housing Stability: Not on file Current Outpatient Medications Medication Sig Dispense Refill Magnesium Oxide 400 MG Oral Capsule Take 1 Capsule by mouth in the morning. 30 Capsule 5 DULoxetine HCl 30 MG Oral Capsule Delayed Release Particles (Cymbalta) Take 1 Capsule by mouth in the morning. Carvedilol 25 MG Oral Tablet (Coreg) Take 1 Tablet by mouth in the morning and 1 Tablet before bedtime. 60 Tablet 1 oxygen IN GAS Administer 2 L/min(Oxygen) into nostril continuous. Polyethylene Glycol 3350 17 GM Oral Packet (MiraLax) Take 1 Packet by mouth in the morning and 1 Packet before bedtime. LORazepam 0.5 MG Oral Tablet (Ativan) Take 1 Tablet by mouth every 6 hours as needed. Aspirin 81 MG Oral Tablet Chewable Take 1 Tablet by mouth in the morning. 90 Tablet 0 Lisinopril 40 MG Oral Tablet Take 1 Tablet by mouth in the morning. Rivastigmine 4.6 MG/24HR Transdermal Patch 24 Hour (Exelon) Place 1 Patch topically on the skin in the morning. Insulin Glargine 100 UNIT/ML Subcutaneous Solution (Lantus) Inject 15 Units under the skin at bedtime. 10 mL 0 Nutren 2.0 Oral Liquid Administer 250 mL into PEG tube in the morning and 250 mL at noon and 250 mLbefore bedtime. 82829 mL 0 Valproate Sodium 250 MG/5ML Oral Solution (Depakene) Administer 5 mL into PEG tube in the morning and 5 mL before bedtime. 300 mL 0 Famotidine 20 MG Oral Tablet (Pepcid) Take 1 Tablet by mouth every evening. Insulin Aspart FlexPen 100 UNIT/ML Subcutaneous Solution Pen-injector Haloperidol Lactate 5 MG/ML Injection Solution Inject 2.5 mg intravenously as needed for Anxiety. Ipratropium-Albuterol 0.5-2.5 (3) MG/3ML Inhalation Solution (Duoneb) Inhale 3 mL by mouth every 4 hours as needed for Shortness of Breath or Cough. Haloperidol 2 MG Oral Tablet (Haldol) Take 1 Tablet by mouth in the morning and 1 Tablet before bedtime. 60 Tablet 0 Ferrous Gluconate 324 (37.5 Fe) MG Tablet Take 2 Tablets by mouth daily. (Patient not taking: Reported on 01/08/2024) Omeprazole 20 MG Oral Capsule Delayed Release (PriLOSEC) Take 1 Capsule by mouth in the morning. (Patient not taking: Reported on 01/08/2024) Atorvastatin Calcium 40 MG Oral Tablet (Lipitor) Take 1 Tablet by mouth at bedtime. (Patient not taking: Reported on 01/08/2024) Torsemide 100 MG Oral Tablet (Demadex) Take 1 Tablet by mouth in the morning. (Patient not taking: Reported on 01/08/2024) 30 Tablet 1 busPIRone HCl 5 MG Oral Tablet (Buspar) Take 2 Tablets by mouth in the morning and 2 Tablets beforebedtime. (Patient not taking: Reported on 01/08/2024) Water For Irrigation, Sterile (WATER FLUSH) TF Administer 50 mL into PEG tube every 6 hours. 1 Each0 amLODIPine Besylate 5 MG Oral Tablet (Norvasc) Take 1 Tablet by mouth in the morning. (Patient not taking: Reported on 01/08/2024) 90 Tablet 3 No current facility-administered medications for this visit. Filed Vitals: 01/08/24 1051 BP: 156/87 Pulse: 68 Resp: 18 Temp: 36.6 C (97.9 F) SpO2: 91% Weight: 78.5 kg (173 lb) PHYSICAL EXAM: GENERAL: Alert, in no acute distress. EYES: PERRL, conjunctivae anicteric. ENT: Mucous membranes moist, oropharynx clear. NECK: Supple, no JVD. LYMPH: No cervical or supraclavicular lymphadenopathy. LUNGS: Clear to auscultation bilaterally, no respiratory distress. CARDIAC: Regular rate and rhythm, normal S1/S2, no murmurs, rubs, or gallops. ABDOMEN: Soft, non-tender, non-distended, bowel sounds present. EXT/MSK: No clubbing, cyanosis, 1+ edema. SKIN: No rash, no jaundice. NEURO: No tremor, no asterixis. LABS/STUDIES: Recent Labs Units 12/30/23 0823 12/28/23 0457 12/25/23 0632 12/21/23 0605 SODIUM - [facility] mmol/L 143 146 145 144 POTASSIUM - [facility] mmol/L 4.3 4.0 4.3 3.8 CHLORIDE - [facility] mmol/L 106 109* 103 105 CO2 - [facility] mmol/L 30 33* 31 34* BUN - [facility] mg/dL 24* 26* 23* 26* CREATININE - [facility] mg/dL 1.3* 1.5* 1.4* 1.3* Recent Labs Units 12/30/23 0823 12/25/23 0632 12/21/23 0605 WBC K/uL 6.70 6.01 5.78 HGB g/dL 9.8* 11.2* 9.7* PLT K/uL 268 364 245 Recent Labs Units 12/30/23 0823 12/28/23 0457 12/25/23 0632 12/21/23 0605 12/20/23 0459 12/19/23 0513 12/18/23 1743 12/18/23 0620 12/17/23 0341 12/16/23 1728 07/04/23 0636 07/03/23 0531 CALCIUM - [facility] mg/dL 8.6 8.6 9.6 9.2 < > 9.2 < > 8.8 < > 9.7 < > 8.5 PHOSPHORUS - [facility] mg/dL -- 3.0 -- -- -- 2.8 -- 3.6 -- 3.4 < > -- 25-HYDROXY VITAMIN D - [facility] ng/mL -- -- -- -- -- -- -- -- -- -- -- 15* < > = values in this interval not displayed. Recent Labs Units 12/28/23 0457 12/01/23 0508 09/01/23 1414 HEMOGLOBIN A1C - [facility] % 8.7* 8.7* 9.2* Recent Labs Units 04/22/22 1014 MICROALBUMIN RATIO-OUTSIDE LAB ug/mg 2854* ASSESSMENT AND PLAN Priya was seen today for chronic kidney disease (ckd). Diagnoses and all orders for this visit: Stage 3a chronic kidney disease (HCC) Patient with CKD stage IIIA due to diabetes and hypertension. She has nephrotic range proteinuria. Recent creatinine of 1.3 and GFR of 48 mL/minute. She is euvolemic. Electrolytes are stable. Will optimize blood pressure diabetes control. Repeat BMP prior to next OV. HTN, goal below 140/90 Blood pressure is above target. Will start amlodipine 5 mg daily. Other orders - amLODIPine Besylate 5 MG Oral Tablet (Norvasc); Take 1 Tablet by mouth in the morning. (Patient not taking: Reported on 01/08/2024) Check-out note: Keep apr 20 appointment Meño Junior MD Nephrology, [address] [place] [address] This note was generated with the help of voice recognition software. Please excuse for errors. documented in this encounter Nursing Notes * Xochilt Mcdonald RN - 01/08/2024 10:56 AM EDT Dementia pt here from SNF accompanied by aide. Unable to answer questions. Will call for med list. documented in this encounter Plan of Treatment Upcoming Encounters Date Type Department Care Team (Late st Contact Info) Description 01/25/2024 10:00 AM EDT Office Visit Urology Jana Mccarthy [place] [address] [place] [address] Cee Azar PA-C [address] [place] [address] 03/08/2024 3:00 PM EST Office Visit Cardiology, [place] [address] [place] [address] [facility] Cabrera [facility] [address] [facility] [address] 04/05/2024 2:00 PM EST Office Visit Cardiology [place] [address] [place] [address] Sharlene Wylie PA-C [address] [facility] [address] 04/20/2024 11:00 AM EST Office Visit Nephrology, [facility] [address] [place] [address] Meño Junior MD [address] [facility] [place] [address] 05/18/2024 9:20 AM EST Office Visit Neurology, [address] [place] [address] Daysi Aquino MD [address] [facility], [place] [id number] Scheduled Procedures Name Priority Associated Diagnoses Date/Ti me COLONOSCOPY FLEXIBLE PROXIMAL DIAGNOSTIC Recall Diverticulosis Health Maintenance Due Date Last Done Comments Depression Screening 1977 Zoster Vaccines (1 of 2) 08/31/2015 COVID-19 Vaccine (2023-2 5 season) 2023 05/14/2021, 09/06/2020, 08/06/2020 Influenza Vaccine (FLU shot) (#1) 2023 Colonoscopy Discontinued 08/06/2018, 08/06/2018 Colorectal Cancer Screening Discontinued RETIRED - COLONOSCOPY-EVERY 5 YRS AGES 18-100 Discontinued 08/06/2018, 08/06/2018 Pap Smear Discontinued 05/23/2019, 08/26/2012 Diabetic Foot Exam Discontinued 04/26/2020 Diabetic Eye Exam Discontinued 11/20/2020, , 02/15/2020, Additional history exists Albumin/Creatinine Ratio Discontinued 023, 03/06/2021, 12/22/2019 Cologuard Discontinued Fecal Occult Blood Test Discontinued Sigmoidoscopy Discontinued documented as of this encounter Medical Devices Not on filedocumented as of this encounter Visit Diagnoses Diagnosis Stage 3a chronic kidney disease (HCC)- Primary HTN, goal below 140/90 Unspecified essential hypertension documented in this encounter Advance Directives Documents on File Type Date Recorded Patient Correction Officer Supervisor Expl anation POLST 12/01/2023 MISSING DATE, P ROVIDER SIGNATURE POLST 08/04/2023 MISSING DATE, P ROVIDER SIGNATURE * Full Code (Latest Code Status on File) Date Activated Date Inactivated Comments 12/16/2023 10:21 PM 12/21/2023 6:16 PM This order reflects the patients wishes and were consensually agreed upon. Question Answer Comments Discussion of Advance Direct jessica occurred with: Not Discussed due to patient's condition * Full Code Date Activated Date Inactivated Comments 12/16/2023 8:01 PM 12/16/2023 10:21 PM This order reflects the patients wishes and were consensually agreed upon. Question Answer Comments Discussion of Advance Directives occurred with: Patient * No Code Date Activated Date Inactivated Comments 11/30/2023 9:17 PM 12/04/2023 5:19 PM This order ref lects the patients wishes and were consensually agreed upon. Question Answer Comments Discussion of Advance Direct jessica occurred with: Not Discussed due to patient's condition Does the patient have a Living Will? Yes, in luis alberto rt and reviewed as current Does the patient have Health Care Power of Flosser? Yes, in chart and reviewed as current * Full Code Date Activated Date Inactivated Comments 11/07/2023 12:10 AM 11/11/2023 4:46 PM This order reflects the patients wishes and were consensually agreed upon. Question Answer Comments Discussion of Advance Directives occurred with: Patient * Full Code Date Activated Date Inactivated Comments 09/21/2023 5:02 PM 09/26/2023 2:22 PM This order r eflects the patients wishes and were consensually agreed upon. Question Answer Comments Discussion of Advance Direct jessica occurred with: Not Discussed due to patient's condition Care Teams Candy Cutter Hand Relationship Specialty Start Date End Date Hermann Shields MD [address] [place] [id number] PCP - General Family Medicine 12/24/23 documented as of this encounter
--- NOTE | 2024-01-23 18:15 | XRay Report ---
XR chest 1V portable HISTORY: 58 years-old Female Chest pain, nonspecific COMPARISON: None TECHNIQUE: AP view the chest FINDINGS: Cardiac silhouette is enlarged. Pulmonary vascular congestion with interstitial opacities. No pneumot horax. [id number] left with large right pleural effusions. Bibasilar consolidation with right lung volume loss. IMPRESSION: 1. Cardiomegaly with pulmonary edema. 2. Right greater than left layering pleural effusions with bibasilar consolidation. ACT 112: Negative or not required by law. The above report was generated using voice recognition software. It may contain grammatical, syntax o r spelling errors. Electronically signed by: Sudhakar Ellis M.D. 01/23/2024 6:14 PM
[2024-01-23 18:18] LABS: Basophils # (auto) 0.01 K/uL (0.00-0.20); Basophils % (auto) 0.1 %; Hematocrit (blood only) 43.9 % (37.0-47.0); Hemoglobin 13.2 g/dl (12.0-16.0); Immature Granulocytes # (auto) 0.07 K/uL (0.01-0.20); Lymphocytes # (auto) 0.48 K/uL (1.20-3.40); Lymphocytes % (auto) 6.5 %; Mean Corpuscular Hemoglobin 28.8 pg (25.0-34.0); Mean Corpuscular Hgb Conc 30.1 g/dL (32.0-36.0); Mean Corpuscular Volume 95.6 fL (80.0-100.0); Mean Platelet Volume 9.9 fL (9.4-12.4); Monocytes # (auto) 0.35 K/uL (0.11-0.59); Monocytes % (auto) 4.8 %; Neutrophils # (auto) 6.42 K/uL (1.40-6.50); Neutrophils % (auto) 87.6 %; Platelet Count 347 K/uL (130-400); RDW Coefficient of Variation 17.2 % (11.5-14.5); RDW Standard Deviation 59.6 fL (36.4-46.3); Red Blood Count 4.59 M/uL (4.20-5.40); White Blood Count 7.33 K/ul (4.8-10.8)
[2024-01-23 18:34] LABS: Albumin Globulin Ratio 1.1 (0.9-2); Albumin Level 3.7 gm/dl (3.4-5.0); BUN Creatinine Ratio 17.7 (10-20); Bilirubin,Total 0.3 mg/dl (0.2-1.0); Calcium 9.9 mg/dl (8.6-10.3); Creatinine Clr Calc Pharmacy 33.5 ml/min; Globulin 3.5 gm/dl (2.5-4.0); Potassium 4.6 mmol/L (3.5-5.1); Total Protein 7.2 gm/dl (6.0-8.3)
[2024-01-23 18:42] LABS: Troponin I High Sensitivity 12.1 pg/ml (0-14)
[2024-01-23] MEDS: FUROSEMIDE 40 MG/4 ML VIAL IV STA (19:18)
--- NOTE | 2024-01-23 20:01 | History & Physical Report ---
Date of Service January 23, 2024 Assessment & Plan (1) Diabetes mellitus, type 2: (2) Acute exacerbation of congestive heart failure: (3) Pleural effusion: (4) HTN (hypertension): Plan This is a 58 y/o female presenting for retirement with what appears to be exacerbation of CHF (unknown EF), PARUL; patient has also pulled out her PEG tube while in ER. 1) Exacerbation of CHF with pleural effusion, unknown EF -Admit to med surg tele -Monitor serial troponins -Perform echo TTE, no recent one in chart -Daily weights, strict I/O -Continue diuresis with IV 40 mg daily; titrate up appropriately -- may repeat CXR in 1-2 days to see if improvement of pleural effusion; do not believe thoracentesis is warranted at this time -Continue Coreg 12.5 mg PO for now -Cardiology consult if needed 2) PEG tube removed by patient -- ER has temporarily placed a Shafer catheter -Will keep patient NPO aside from essential medications -Consult GI in AM for possible replacement of tube 3) PARUL in setting of possible CKD; Cr 1.75 with baseline 1.3 or below -Will check UA -Will check urine Cr and Urea given patient is on Lasix for FE Urea -If not improving with diuresis, then will need further workup -Dose medications renally and avoid nephrotoxic medications 3) DM2 -Patient is NPO -Will place q6h accuchek and can get SSI if ser gluc elevated with goal 110-150 4) HTN -For now will continue just her beta clari as above -Will hold on Amlodipine and Lisinopril until confirmed 5) DVT PPx -- For now will place on SCDs only in case patient needs to go for procedure to replace PEG tube in AM; can place on Heparin/Lovenox after 6) Code Status -- Cannot obtain from patient or chart at this time; will keep full code until clarified History of Present Illness Chief Complaint: Brought in with Hypoxia Primary Care Provider: Berlin Ledezma Patient has dementia and cannot provide history, all of it is obtained from chart and from ER staff. This is a 58 y/o female with MHx signicant for DM2, HTN, HLD, CHF (unknown EF), with PEG tube in place, and apparently advanced dementia who is brought in from [facility] with hypoxia. Per report from NH, patient was noted to be SOB yesterday, and was started on 3L NC. She was apparently also given steroids and Rocephin. Today she was noted to not have her O2 in place, and was hypoxic and appeared to be having some more respiratory distress, so she was sent here by EMS. Patient has no c/c at this time. Not able to answer any questions. Of note, in ER patient did pull out her PEG tube. Allergies Allergy/AdvReac Type Severity Reaction Status Date / Time No Known Drug Allergies Allergy Unknown . Verified 10/25/18 08:01 Home Medications Medication Instructions Recorded Confirmed Type carvedilol 12.5 mg tablet 25 mg PO Q12H 10/11/18 01/23/24 History duloxetine 30 mg capsule,delayed 30 mg PO DAILY 10/11/18 01/23/24 History release lisinopril 40 mg tablet 40 mg PO DAILY 10/11/18 01/23/24 History Past Med/Surg History Problem List (Updated 01/23/24 @ 20:06 by Brayden Rose MD) HTN (hypertension) Pleural effusion Acute exacerbation of congestive heart failure Encounter for pre-operative examination Medical History (Updated 01/23/24 @ 20:06 by Brayden Rose MD) Diabetes mellitus, type 2 Vitreous hemorrhage Surgical History History of esophagogastroduodenoscopy (EGD) History of colonoscopy History of hysterectomy Family History Father Cancer Mother Cancer Social History Smoking Status: Unknown if ever smoked Second Hand Exposure: No; Do You Dip or Chew Tobacco: No; Hx Alcohol Use: No Hx Substance Use: No Preferred Language: Irish Communication Ability: Effective 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 There are some decreased breath sounds at bases and possibly some b/l crackles. Cardiovascular: RRR, no murmur, no edema Gastrointestinal (Abdomen): normal bowel sounds, soft, nontender, no hepatosplenomegaly Patient had PEG tube in place, but she removed it in ER. Musculoskeletal: no cyanosis or clubbing, extremities motor strength 5/5 does have 1++ b/l LE edema Neurologic: Cannot assess in detail because of her dementia. Psychiatric: Cannot assess in detail because of her dementia. Results & Data Results & Data Vital Signs (Past 12 Hours) Vital Signs Temp Pulse Pulse Resp BP BP Pulse Ox 01/23/24 18:35 72 20 178/91 H 98 01/23/24 17:48 71 01/23/24 17:46 98 01/23/24 17:46 01/23/24 17:34 36 C L 84 97 H 172/109 H 20 L O2 Del Method O2 Flow Rate 01/23/24 18:35 Nasal Cannula 3 01/23/24 17:48 01/23/24 17:46 Nasal Cannula 3 01/23/24 17:46 Nasal Cannula 3 01/23/24 17:34 Laboratory Results 01/23/24 18:02 WBC 7.33 RBC 4.59 Hgb 13.2 Hct 43.9 MCV 95.6 MCH 28.8 MCHC 30.1 L RDW Std Deviation 59.6 H RDW Coeff of Laura 17.2 H Plt Count 347 MPV 9.9 Immature Gran % (Auto) 1.0 Neut % (Auto) 87.6 Lymph % (Auto) 6.5 [place] % (Auto) 4.8 Eos % (Auto) 0.0 Baso % (Auto) 0.1 Neut # (Auto) 6.42 Lymph # (Auto) 0.48 L [place] # (Auto) 0.35 Eos # (Auto) 0.00 Baso # (Auto) 0.01 Immature Gran # (Auto) 0.07 Sodium 146 H Potassium 4.6 Chloride 104 Carbon Dioxide 34 H Anion Gap 8 BUN 31 H Creatinine 1.75 H Est Cr Clr Drug Dosing 33.5 eGFR 33.36 BUN/Creatinine Ratio 17.7 Glucose 273 H Calcium 9.9 Total Bilirubin 0.3 AST 9 L ALT 10 Alkaline Phosphatase 137 H Troponin I High Sens 12.1 Total Protein 7.2 Albumin 3.7 Globulin 3.5 Albumin/Globulin Ratio 1.1 Lipase 5 L Diagnostic Findings Chest X-Ray 01/23/24 17:39 XR chest 1V portable HISTORY: 58 years-old Female Chest pain, nonspecific COMPARISON: None TECHNIQUE: AP view the chest FINDINGS: Cardiac silhouette is enlarged. Pulmonary vascular congestion with interstitial opacities. No pneumothorax. Mwplp-[id number]-gvxydint left with large right pleural effusions. Bibasilar consolidation with right lung volume loss. IMPRESSION: 1. Cardiomegaly with pulmonary edema. 2. Right greater than left layering pleural effusions with bibasilar consolidation. ACT 112: Negative or not required by law. The above report was generated using voice recognition software. It may contain grammatical, syntax or spelling errors. Electronically signed by: Sudhakar Ellis M.D. 01/23/2024 6:14 PM ECG Additional Comments: NSR at 72 Some artifact noted in V3 and V6 ?nonspecific T wave abnormality Code Status & VTE Plan Code Status Cannot obtain from patient. Will have to obtain documentation from NH if possible. Will keep full code for now. PG Care Time/CCT Total # of Minutes Spent Total Time Spent with Patient: Total time spent is greater than 50% in coordination of care (as documented) at patient's floor/unit and/or counseling patient: Coding Level of Care Code 81873 INT INP/OBS CARE 2/55MIN Diagnoses Diabetes mellitus, type 2 E11.9 Acute exacerbation of congestive heart failure I50.9 Pleural effusion J90 HTN (hypertension) I10 Time Spent (min) 60
[2024-01-23 21:16] LABS: Adenovirus PCR Not Detected (NotDetected); Bordetella parapertussis PCR Not Detected (NotDetected); Bordetella pertussis PCR Not Detected (NotDetected); Chlamydia pneumoniae PCR Not Detected (NotDetected); Coronavirus 229E PCR Not Detected (NotDetected); Coronavirus CoV-2 (COVID19)PCR Not Detected (NotDetected); Coronavirus HKU1 PCR Not Detected (NotDetected); Coronavirus NL63 PCR Not Detected (NotDetected); Coronavirus OC43PCR Not Detected (NotDetected); Human Metapneumovirus PCR Not Detected (NotDetected); Influenza A PCR Not Detected (NotDetected); Influenza B PCR Not Detected (NotDetected); Mycoplasma pneumoniae PCR Not Detected (NotDetected); Parainfluenza Virus 1 PCR Not Detected (NotDetected); Parainfluenza Virus 2 PCR Not Detected (NotDetected); Parainfluenza Virus 3 PCR Not Detected (NotDetected); Parainfluenza Virus 4 PCR Not Detected (NotDetected); Respiratory Syncytial VirusPCR Not Detected (NotDetected); Rhinovirus/Enterovirus PCR Not Detected (NotDetected)
[2024-01-23] MEDS ORDERED: GLUCAGON FOR INJ 1 MG VIAL SQ PRN (23:26)
[2024-01-23] MEDS ORDERED: GLUCOSE 10 TAB/TUBE PO PRN (23:26)
[2024-01-23] MEDS ORDERED: GLUCOSE 40% GEL 15 GM TUBE PO PRN (23:26)
[2024-01-23] MEDS ORDERED: CARBOHYDRATES FOR HYPOGLYCEMIA PO PRN (23:26)
[2024-01-23] MEDS ORDERED: DEXTROSE 50% 50 ML SYRINGE IV PRN (23:26)
--- NOTE | 2024-01-23 23:52 | XRay Report ---
Exam(s): XR KUB EXAM: XR Abdomen, 1 View CLINICAL HISTORY: Reason for exam: gastro to confirm. TECHNIQUE: Frontal supine view of the abdomen/pelvis. COMPARISON: No relevant prior studies available. FINDINGS: Gastrointestinal tract: Mild fecal retention, correlate for constipation. No dilation. Bones/joints: Unremarkable. No acute fracture. Tubes, lines and devices: PEG tube in stomach. IMPRESSION: 1. Mild fecal retention, correlate for constipation. 2. PEG tube in stomach. Electronically signed by: Vitor Gonzales MD 01/23/24 23:51 PM
[2024-01-24] MEDS: INSULIN ASPART PER UNIT CHARGE SC SCH ×2 (00:14→17:21)
[2024-01-24] MEDS: carvediloL 12.5 MG TAB PO SCH (00:23)
--- NOTE | 2024-01-24 07:33 | Electrocardiogram Report ---
Test Reason : Blood Pressure : */* mmHG Vent. Rate : 72 BPM Atrial Rate : 72 BPM P-R Int : 176 ms QRS Dur : 80 ms QT Int : 410 ms P-R-T Axes : 73 21 104 degrees QTcB Int : 448 ms Normal sinus rhythm Nonspecific ST and T wave abnormality Abnormal ECG Confirmed by Perez Lau ([id number]) on 01/24/2024 7:33:15 AM Referred By: Confirmed By: Perez Lau
[2024-01-24] MEDS ORDERED: bisacodyL 10 MG SUPP PR PRN (07:47)
[2024-01-24 07:57] LABS: Hematocrit (blood only) 38.5 % (37.0-47.0); Hemoglobin 11.3 g/dl (12.0-16.0); Mean Corpuscular Hemoglobin 28.6 pg (25.0-34.0); Mean Corpuscular Hgb Conc 29.4 g/dL (32.0-36.0); Mean Corpuscular Volume 97.5 fL (80.0-100.0); Mean Platelet Volume 10.2 fL (9.4-12.4); Platelet Count 277 K/uL (130-400); RDW Coefficient of Variation 17.2 % (11.5-14.5); RDW Standard Deviation 61.8 fL (36.4-46.3); Red Blood Count 3.95 M/uL (4.20-5.40); White Blood Count 11.18 K/ul (4.8-10.8)
[2024-01-24 07:59] LABS: BUN Creatinine Ratio 19.5 (10-20); Calcium 9.4 mg/dl (8.6-10.3); Creatinine Clr Calc Pharmacy 35.8 ml/min; Potassium 4.3 mmol/L (3.5-5.1)
[2024-01-24 08:05] LABS: Troponin I High Sensitivity 14.4 pg/ml (0-14)
[2024-01-24] MEDS: ALBUT/IPRATROP 3MG/0.5MG NEB 3 ML VIAL ONE (08:17)
[2024-01-24] MEDS ORDERED: FUROSEMIDE 40 MG/4 ML VIAL IV SCH (09:00)
[2024-01-24] MEDS ORDERED: PANTOprazole 40 MG TAB PO SCH (09:00)
[2024-01-24] MEDS: TUBE FEEDING WATER FLUSH GT SCH (09:12)
--- NOTE | 2024-01-24 09:25 | XCELERA ---
[id number]
[2024-01-24] MEDS: VALPROIC ACID SOLN 250 MG/5 ML UDC PO SCH (09:27)
[2024-01-24] MEDS: DULoxetine HCL 30 MG CAP PO SCH (09:28)
[2024-01-24] MEDS: FAMOTIDINE 20 MG TAB PO SCH (09:28)
[2024-01-24] MEDS: haloperidoL 1 MG TAB PO SCH (09:28)
[2024-01-24] MEDS: LANSOPRAZOLE 30 MG SOLTAB PEG SCH (09:28)
[2024-01-24] MEDS: DEXTROSE 5% 500 ML IV SCH (09:36)
[2024-01-24 09:46] LABS: Appearance Urine Clear (Clear); Bacteria Urine Automated None Seen (None Seen); Bilirubin Urine Negative (Negative); Blood Urine Negative (Negative); Cast Urine Automated 0-2 /lpf (0-2); Color Urine Yellow; Glucose Urine UA Trace (Negative); Ketones Urine Trace (Negative); Leukocyte Esterase Urine Trace (Negative); Nitrite Urine Negative (Negative); Protein Urine 3+ (Negative); RBC Urine Automated 0-2 /hpf (0-2); Specific Gravity Urine 1.016 (1.000-1.030); Urobilinogen Urine Negative (Negative); pH Urine 5.5 (4.5-7.5)
[2024-01-24] MEDS: ALBUT/IPRATROP 3MG/0.5MG NEB 3 ML VIAL INH SCH (10:01)
--- NOTE | 2024-01-24 11:53 | Pulmonary Consultation ---
Date of Consultation January 24, 2024 Assessment & Plan (1) Bilateral pleural effusion: (2) Chronic respiratory failure with hypoxia, on home oxygen therapy: (3) Cardiorenal syndrome: (4) Hypernatremia: (5) PARUL (acute kidney injury): (6) Elevated brain natriuretic peptide (BNP) level: Plan 58-year-old female with a complex history of vascular dementia, diastolic heart failure, hypertension with diabetes mellitus presenting to the hospital with hypoxemia identified at her correction. She essentially has volume overload related to renal failure and diastolic heart failure. She has large bilateral effusions likely from volume overload. She is not consentable at this time due to severe delirium in the setting of vascular dementia likely related to hypernatremia and change in location. There is no family available currently to consent. I called the patient's over the phone, but the phone lines were disconnected. She is oxygenating in the mid 90s on her home 3 L of oxygen therapy. I am not certain that she would be able to comply with a thoracentesis and stay still. I would recommend holding off on thoracentesis at this time unless her clinical picture worsens. Echo reviewed with evidence of left atrium dilation and mild concentric LVH. Right ventricular pressures are mildly elevated to 40 to 50 mmHg likely from diastolic heart failure. BNP is elevated to 975. I requested the nurses to place a Shafer catheter to monitor her urine output terry sely given her PARUL and hypernatremia. She has a significant free water deficit. Agree with free water supplementation. Consider nephrology consultation to assist with diuresis in the setting of cardiorenal syndrome, hypernatremia and poor p.o. intake. Lastly, patient is listed as full code. Recommend palliative care consultation to discuss goals of care given patient's significant comorbidities including vascular dementia and possibly chronic kidney disease. Pulmonary will continue to follow along with you. Thank you for the consult. History of Present Illness Reason for Consultation: Large bilateral pleural effusions Attending Physician: Daniella Aguirre MD History of Present Illness History is unobtainable from the patient as she is currently severely encephalopathic and at baseline has vascular dementia. Collateral history is obtained from discussion with the bedside nurse and review of the chart. Patient is a 50-year-old female with a history of hypertension, diastolic heart failure, diabetes mellitus and PEG tube placement with vascular dementia who presented to the hospital from her side correction due to hypoxemia. She is on baseline of 3 L of oxygen via nasal cannula and is currently on that same flow oxygen. She was given 40 mg of IV Lasix yesterday and has had an increase in her creatinine and thus Lasix have been discontinued. Chest x-ray demonstrated bilateral pleural effusions. She does not have a Shafer catheter in place. I performed a bedside ultrasound today of her bilateral pleural effusions. She has large free-flowing bilateral effusions. Allergies Allergy/AdvReac Type Severity Reaction Status Date / Time No Known Drug Allergies Allergy Unknown . Verified 10/25/18 08:01 Home Medications Medication Instructions Recorded Confirmed Type carvedilol 12.5 mg tablet 25 mg PO Q12H 10/11/18 01/23/24 History duloxetine 30 mg capsule,delayed 30 mg PO DAILY 10/11/18 01/23/24 History release lisinopril 40 mg tablet 40 mg PO DAILY 10/11/18 01/23/24 History bisacodyl 10 mg rectal suppository 10 mg FL Q48H PRN Constipation 01/23/24 01/23/24 History (Dulcolax (bisacodyl)) ceftriaxone 1 gram solution for 1 g IM Q24H 01/23/24 01/23/24 History injection dextrose 40 % oral gel See Rx Instructions .Route .COMPLEX 01/23/24 01/23/24 History famotidine 20 mg tablet 20 mg PO DAILY 01/23/24 01/23/24 History glucagon 1 mg solution for 1 mg IM DIRECTED PRN 01/23/24 01/23/24 History injection (Glucagon Emergency Kit) Hypoglycemia guaifenesin 1,200 mg tablet, 400 mg PO Q12H 01/23/24 01/23/24 History extended release 12 hr (Mucinex) haloperidol 2 mg tablet 2 mg PO Q12H 01/23/24 01/23/24 History insulin glargine 100 unit/mL (3 5 unit subcut HS 01/23/24 01/23/24 History mL) subcutaneous pen (Lantus Solostar U-100 Insulin) insulin lispro 100 unit/mL See Rx Instructions .Route .COMPLEX 01/23/24 01/23/24 History subcutaneous pen (Humalog KwikPen (U-100) Insulin) ipratropium 0.5 mg-albuterol 3 mg 3 ml inhalation Q4H 01/23/24 01/23/24 History (2.5 mg base)/3 mL nebulization soln lisinopril 40 mg tablet 40 mg PO DAILY 01/23/24 01/23/24 History magnesium hydroxide 400 mg/5 mL 30 ml PO Q48H PRN Constipation 01/23/24 01/23/24 History oral suspension (Milk of Magnesia) magnesium oxide 400 mg PO DAILY 01/23/24 01/23/24 History metformin 500 mg tablet 500 mg PO BID 01/23/24 01/23/24 History polyethylene glycol 3350 17 gram 17 g PO DAILY 01/23/24 01/23/24 History oral powder packet prednisone 20 mg tablet 40 mg PO DAILY 01/23/24 01/23/24 History rivastigmine 4.6 mg/24 hour 4.6 mg transdermal DAILY 01/23/24 01/23/24 History transdermal patch (Exelon Patch) sodium phosphates 19 gram-7 118 ml FL Q48H PRN Constipation 01/23/24 01/23/24 History gram/118 mL enema (Enema) valproic acid (as sodium salt) 250 250 mg PO Q12H 01/23/24 01/23/24 History mg/5 mL oral solution Patient History Medical History (Updated 01/24/24 @ 11:52 by Richard Gutierrez MD) Diabetes mellitus, type 2 Vitreous hemorrhage Surgical History History of esophagogastroduodenoscopy (EGD) History of colonoscopy History of hysterectomy Family History Father Cancer Mother Cancer Social History Smoking Status: Unknown if ever smoked Second Hand Exposure: No; Do You Dip or Chew Tobacco: No; Hx Alcohol Use: No Preferred Language: [place] Communication Ability: Impaired Communication Ability Comment: advanced dementia Balance Screwhead Polisher Required: No Beliefs That Will Affect Care: None Current Living Situation: Custodial Feels Safe at Home: Yes Assistive Devices: Oxygen - Continuous and Wheelchair Review of Systems Review of Systems: Unobtainable due to cognitive status Physical Exam Physical Exam: Constitutional: Patient appears older than stated age. Disheveled. Minimally responsive, but does open eyes spontaneously. Eyes: Pupils are equal round and reactive to light. Conjunctivae are normal. Anicteric sclera. Ears nose, mouth and throat: Mallampati class 2. Normal posterior oropharynx. Uvula is midline. Neck: Trachea is midline. Visual inspection is normal. Respiratory: Diminished lung sounds bilaterally at the bases with some mild crackles. Cardiovascular: Regular rate and rhythm. No murmurs. No edema. Gastrointestinal: Normal bowel sounds, soft, nontender and nondistended. No hepatosplenomegaly noted. Musculoskeletal: No cyanosis. Patient is able to move all extremities. Strength is 5 out of 5 in the upper and lower extremities. Skin: No rashes, warm dry and intact. Neurologic: Mild contractures in the bilateral hands. Moves all limbs spontaneously. Psychiatric: Severely delirious and nonverbal. Results & Data Results & Data Vital Signs (Past 12 Hours) Vital Signs Temp Pulse Pulse Resp BP Pulse Ox O2 Del Method 01/24/24 11:24 36.3 C L 69 22 181/92 H 95 Nasal Cannula 01/24/24 11:17 68 18 96 Nasal Cannula 01/24/24 08:19 69 12 93 Nasal Cannula 01/24/24 07:29 36.4 C L 71 16 165/90 H 93 Room Air 01/24/24 07:25 Nasal Cannula 01/24/24 05:37 75 01/24/24 03:31 36.4 C L 76 16 168/73 H 92 Nasal Cannula 01/24/24 00:27 Nasal Cannula O2 Flow Rate 01/24/24 11:24 3 01/24/24 11:17 3 01/24/24 08:19 3 01/24/24 07:29 01/24/24 07:25 3 01/24/24 05:37 01/24/24 03:31 3 01/24/24 00:27 3 PG Care Time/CCT Total # of Minutes Spent Total Time Spent with Patient: Total time spent is greater than 50% in coordination of care (as documented) at patient's floor/unit and/or counseling patient: Coding Level of Care Code 80586 IN/OBS CONSULT LVL 5,80M Diagnoses Bilateral pleural effusion J90 Chronic respiratory failure with hypoxia, on home oxygen therapy J96.11; Z99.81 Cardiorenal syndrome I13.10 Hypernatremia E87.0 PARUL (acute kidney injury) N17.9 Elevated brain natriuretic peptide (BNP) level R79.89
--- NOTE | 2024-01-24 12:37 | Hospitalist Progress Note ---
Date of Service January 24, 2024 Assessment & Plan (1) Acute exacerbation of congestive heart failure: Plan: This is a 58 y/o female who presents from the [facility] with shortness of breath, hypoxemia as she had pulled off her supplemental oxygen. Also with elevated creatinine from baseline/PARUL, and she self discontinued her PEG tube in the ER. Chest x-ray with large right pleural effusion and small to moderate left pleural effusion. She was also found to be hypernatremic Also with peripheral edema She was given IV Lasix in the ER and had her PEG tube replaced Acute on chronic HFpEF Also with some acute encephalopathy likely secondary to hypernatremia in the setting of severe dementia Admitted with possible exacerbation of CHF with unknown EF as no old records available at the time of admission IV Lasix x 1 was given in the ER and now with worsening hypernatremia-hold further Lasix Chest x-ray with large pleural effusions-consult pulmonology for thoracentesis- recommended to hold off for now as she likely will not hold still for procedure Echocardiogram here with preserved EF, incomplete study due to inability to cooperate, and elevated right-sided pressures consistent with pulmonary hypertension Follow I's and O's, daily weights Hold off on further diuresis attempts at this time Continue supplemental O2 to keep pulse ox greater than 90% (2) Bilateral pleural effusion: Plan: As above, most likely from heart failure Pulmonology consult appreciated (3) Hypernatremia: Plan: Sodium 150 but corrected for hyperglycemia goes up to 152 Worsened after receiving IV Lasix Is with free water deficit despite overall total body volume up Give 1 L D5W at 80 mL/h, add free water flushes 100 mL every 4 hours to PEG tube Follow BMP Encourage p.o. free water intake (4) CKD (chronic kidney disease) stage 3, GFR 30-59 ml/min: Plan: PARUL in setting of possible CKD; Cr 1.75 with baseline 1.3 or below Was given IV Lasix and creatinine is down to 1.64-holding further Lasix Hold home lisinopril, metformin Follow BMP Avoid nephrotoxins, renally dose medications when necessary (5) Chronic respiratory failure with hypoxia, on home oxygen therapy: Plan: On 3 L nasal cannula chronically, likely secondary to heart failure (6) Diabetes mellitus, type 2: Plan: Blood sugars are quite elevated here, recent hemoglobin A1c 8.1%, on Lantus 5 units daily and Humalog sliding scale as an outpatient Start Lantus 7 units daily and increase correction factor and carb ratio with NovoLog (7) Vascular dementia: Plan: With PEG tube placed to be able to administer medications in case she refuses them is what was reported by [facility]. Otherwise, she is able to eat a mechanical soft diet With aphasia, and reportedly only oriented x 1, but is nonverbal here Continue Exelon patch, supportive care On one-to-one for pulling out PEG tube and IVs Continue Haldol 2 Mg p.o. twice daily and continue home valproic acid 250 Mg p.o. twice daily presumably for behavioral/mood reasons as there is no mention of seizure disorder on paperwork from [facility] Continue duloxetine (8) HTN (hypertension): Plan: Blood pressures are elevated and lisinopril on hold for acute kidney injury Amlodipine is in the external med history but is not currently on her medication reconciliation-hold for now-this may also be causing her peripheral edema so would not restart Resume home carvedilol 25 Mg p.o. twice daily (9) GERD (gastroesophageal reflux disease): Plan: Resume home Pepcid and give lansoprazole which can be placed through PEG tube if refuses p.o. Protonix (10) History of CVA (cerebrovascular accident): Plan: Mentioned in [facility] records, likely because of her vascular dementia Resume home aspirin 81 mg daily (11) S/P percutaneous endoscopic gastrostomy (PEG) tube placement: Plan: This was pulled out by the patient in the ER and replaced by the ER physician Cancel GI consultation This is only used as needed for medications when she refuses them by mouth Using free water flushes for now for hypernatremia Plan DVT PPx -- SCDs,add heparin Dispo-continued stay on medical unit with telemetry Full COde based on POLST from [facility] records I called both numbers listed for the and the number listed for the daughter and the chart and got no answers. Left voicemails for them to call back. May benefit from palliative consult and CODE STATUS discussion given severe dementia and heart failure with large pleural effusions once family member calls back. She cannot be consented for thoracentesis at this time. Admission and Anticipated Discharge Date Admission Date: January 23, 2024 Subjective Patient nonverbal, initially sleeping but did wake up with verbal stimulus and grabbed my hand for me to help pull her up to sitting position in the bed after which she swung her legs over the side. She is unable to tell me if she has any pain or problems. She did appear mildly tachypneic even at rest I attempted to call both numbers listed for her as well as the number listed for her daughter and left voicemails but did not get a return call. [facility] provided some collateral information to include that the patient typically eats a mechanical soft diet and is mostly nonverbal, oriented to person only, sometimes gets visibly frustrated. They used her PEG tube only for water flushes and pills when she refuses to take medicines. She is on 3 L chronically of O2 nasal cannula Telemetry with normal sinus rhythm with rates in the 70s Physical Exam Constitutional: WD/WN, vitals as above + obese Eyes: + anicteric sclerae Respiratory: + tachypneic (Mild at rest); no cough Auscultation: + diminished lung sounds (At bases right greater than left); no crackles, no rhonchi and no wheezes Cardiovascular: Rate/Rhythm: regular rate and regular rhythm Heart Sounds: no murmur Extremities: + edema (2+ edema of the legs bilaterally) Gastrointestinal (Abdomen): Inspection/Auscultation: normal bowel sounds; + abdomen abnormal to inspection (PEG tube in place) and abdomen not distended Percussion/Palpation: abdomen soft; abdomen nontender Neurologic: no focal motor deficits Speech / Cognition: + expressive aphasia and + abnormal cognition Psychiatric: Orientation: alert; + not oriented x 3 Results & Data Results & Data Vital Signs (Past 12 Hours) Vital Signs Temp Pulse Pulse Resp BP Pulse Ox O2 Del Method 01/24/24 11:24 36.3 C L 69 22 181/92 H 95 Nasal Cannula 01/24/24 11:17 68 18 96 Nasal Cannula 01/24/24 08:19 69 12 93 Nasal Cannula 01/24/24 07:29 36.4 C L 71 16 165/90 H 93 Room Air 01/24/24 07:25 Nasal Cannula 01/24/24 05:37 75 01/24/24 03:31 36.4 C L 76 16 168/73 H 92 Nasal Cannula O2 Flow Rate 01/24/24 11:24 3 01/24/24 11:17 3 01/24/24 08:19 3 01/24/24 07:29 01/24/24 07:25 3 01/24/24 05:37 01/24/24 03:31 3 Laboratory Results CBC, BMP, troponin reviewed Diagnostic Findings KUB with Gastrografin and chest x-ray reviewed Echocardiogram reviewed PG Care Time/CCT Total # of Minutes Spent Total Time Spent with Patient: Total time spent is greater than 50% in coordination of care (as documented) at patient's floor/unit and/or counseling patient: Coding Level of Care Code 66238 SUB INP/OBS CARE 3/50MIN Diagnoses Acute exacerbation of congestive heart failure I50.9 Bilateral pleural effusion J90 Hypernatremia E87.0 CKD (chronic kidney disease) stage 3, GFR 30-59 ml/min N18.30 Chronic respiratory failure with hypoxia, on home oxygen therapy J96.11; Z99.81 Diabetes mellitus, type 2 E11.9 Vascular dementia F01.50 HTN (hypertension) I10 GERD (gastroesophageal reflux disease) K21.9 History of CVA (cerebrovascular accident) Z86.73 S/P percutaneous endoscopic gastrostomy (PEG) tube placement Z93.1
[2024-01-24] MEDS: HEPARIN SOD 5,000 UNIT/0.5 ML VIAL SQ SCH (13:10)
[2024-01-24] MEDS: LANTUS PER UNIT CHARGE SQ SCH (13:10)
[2024-01-24] MEDS: ACETAMINOPHEN 325 MG TAB PO PRN (20:24)
[2024-01-25] MEDS: ASPIRIN 81 MG ECTAB PO SCH (07:56)
[2024-01-25] MEDS: MAGNESIUM OXIDE 400 MG TAB PO SCH (07:57)
--- NOTE | 2024-01-25 07:59 | Pulmonology Progress Note ---
Date of Service January 25, 2024 Assessment & Plan (1) Bilateral pleural effusion: (2) Chronic respiratory failure with hypoxia, on home oxygen therapy: (3) Cardiorenal syndrome: (4) Hypernatremia: (5) PARUL (acute kidney injury): (6) Elevated brain natriuretic peptide (BNP) level: Plan Impression: 58-year-old female with a complex history of vascular dementia, diastolic heart failure, admitted with hypoxemia and bilateral pleural effusions. She is on room air currently and with her baseline dementia nursing is concerned about her ability to consent for any procedure. Recommendations: 1. Bilateral pleural effusions: Suspect fluid overload related to heart failure. Unfortunately the patient's underlying dementia may preclude her ability to consent for any procedures and family's been unable to be contacted. Given her clinical stability, I am not sure that this would qualify for an emergent two-physician consent. Would recommend continued efforts to try and reach family and if consent can be obtained, I would be happy to perform a thoracentesis at that point in time. Otherwise would continue attempts at diuresis and following kidney function. Agree with plans to address CODE STATUS given the patient's underlying neurocognitive status. Feel free to contact us if thoracentesis needs to be pursued and appropriate points of contact are available for consent. Pulmonary will sign off at this point in time Admission and Anticipated Discharge Date Admission Date: January 23, 2024 Subjective Patient seen and examined. EMR reviewed. Discussed with off going shrimp cleaner and bedside nurse. The patient is currently sitting up in a chair. She is awake. There is concerned about her ability to provide consent. The patient is on room air currently. History is limited due to the patient's underlying vascular dementia. No family available and apparently family's been unable to be contacted. Review of Systems 2 Review of Systems: Unobtainable due to cognitive status Physical Exam 2 Constitutional: WD/WN, vitals as above Neck: trachea midline, no thyromegaly Respiratory: no labored breathing, no cough and not tachypneic A uscultation: + diminished lung sounds Cardiovascular: RRR, no murmur, no edema Gastrointestinal (Abdomen): normal bowel sounds, soft, nontender, no hepatosplenomegaly Musculoskeletal: Extremities: extremities normal to inspection Skin: no rashes, warm and dry Neurologic: Nonfocal exam Lymphatic: no cervical lymphadenopathy Results & Data Results & Data Vital Signs (Past 12 Hours) Vital Signs Temp Pulse Pulse Resp BP Pulse Ox O2 Del Method 01/25/24 07:36 36.3 C L 68 20 175/84 H 91 Nasal Cannula 01/25/24 07:26 77 01/25/24 07:19 62 20 93 Nasal Cannula 01/25/24 03:00 36.5 C 67 20 179/90 H 90 Nasal Cannula 01/25/24 02:55 67 16 90 Nasal Cannula 01/24/24 23:10 36.6 C 69 18 177/92 H 93 Nasal Cannula 01/24/24 23:02 59 L 16 93 Room Air 01/24/24 21:47 64 01/24/24 20:24 70 16 93 Nasal Cannula 01/24/24 20:20 Nasal Cannula 01/24/24 19:56 36.5 C 80 20 140/104 H 92 Nasal Cannula O2 Flow Rate 01/25/24 07:36 3 01/25/24 07:26 01/25/24 07:19 3 01/25/24 03:00 3 01/25/24 02:55 3 01/24/24 23:10 3 01/24/24 23:02 3 01/24/24 21:47 01/24/24 20:24 3 01/24/24 20:20 3 01/24/24 19:56 3 Laboratory Results 01/24/24 07:25 01/24/24 07:25 Diagnostic Findings No new imaging PG Care Time/CCT Total # of Minutes Spent Total Time Spent with Patient: Total time spent is greater than 50% in coordination of care (as documented) at patient's floor/unit and/or counseling patient: Coding Level of Care Code 09812 SUB INP/OBS CARE 2/35MIN Diagnoses Bilateral pleural effusion J90 Chronic respiratory failure with hypoxia, on home oxygen therapy J96.11; Z99.81 Cardiorenal syndrome I13.10 Hypernatremia E87.0 PARUL (acute kidney injury) N17.9 Elevated brain natriuretic peptide (BNP) level R79.89
[2024-01-25] MEDS: POLYETHYLENE (MIRALAX) 17 GM PACK PO SCH (08:22)
[2024-01-25 10:18] LABS: Basophils # (auto) 0.04 K/uL (0.00-0.20); Basophils % (auto) 0.6 %; Eosinophils # (auto) 0.42 K/uL (0.00-0.50); Eosinophils % (auto) 5.8 %; Hematocrit (blood only) 36.7 % (37.0-47.0); Hemoglobin 11.5 g/dl (12.0-16.0); Immature Granulocytes # (auto) 0.04 K/uL (0.01-0.20); Immature Granulocytes % (auto) 0.6 %; Lymphocytes # (auto) 1.05 K/uL (1.20-3.40); Lymphocytes % (auto) 14.5 %; Mean Corpuscular Hemoglobin 29.3 pg (25.0-34.0); Mean Corpuscular Hgb Conc 31.3 g/dL (32.0-36.0); Mean Corpuscular Volume 93.6 fL (80.0-100.0); Mean Platelet Volume 10.3 fL (9.4-12.4); Monocytes % (auto) 8.3 %; Neutrophils % (auto) 70.2 %; Platelet Count 271 K/uL (130-400); RDW Coefficient of Variation 16.7 % (11.5-14.5); RDW Standard Deviation 57.4 fL (36.4-46.3); Red Blood Count 3.92 M/uL (4.20-5.40); White Blood Count 7.25 K/ul (4.8-10.8)
[2024-01-25 10:31] LABS: BUN Creatinine Ratio 17.2 (10-20); Creatinine Clr Calc Pharmacy 44.2 ml/min; Potassium 4.3 mmol/L (3.5-5.1)
[2024-01-25 10:44] LABS: Thyroid Stimulating Hormone 3.234 uIu/ml (0.300-4.500)
[2024-01-25] MEDS: haloperidoL 1 MG TAB PO SCH (13:25)
[2024-01-25] MEDS: HALOPERIDOL LACTATE 5 MG/ML 1 ML VIAL IM STA (14:45)
[2024-01-25] MEDS: FUROSEMIDE 40 MG/4 ML VIAL IV ONE (15:38)
--- NOTE | 2024-01-25 16:20 | Nephrology Consultation ---
Date of Consultation January 25, 2024 Assessment & Plan (1) PARUL (acute kidney injury): * PARUL on CKD related to intravascular volume contraction. This has resolved following gentle hydration/free water administration * Admission urine microscopy was acellular. Urinalysis revealed a concentrated sample positive for protein. Will order UACR (2) CKD (chronic kidney disease) stage 3, GFR 30-59 ml/min: * Presumed CKD.Admission creatinine 1.3. No prior documentation of renal disea se in hospital or long term EMR, however, patient likely has underlying DKD related to poorly controlled AODM. She does have a documented history of poor glycemic control and retinopathy (3) Hypernatremia: * Corrected. Continue free water flushes 100 cc every 4 hours the PEG tube. Monitor BMP (4) Bilateral pleural effusion: * Likely transudative effusions related to diastolic heart failure/pulmonary hypertension * Patient likely will require thoracentesis to improve her respiratory function. If this cannot be safely performed, then recommend consultation with palliative care to define goals of care. I was asked by the hospitalist service to comment on whether patient is a dialysis candidate. Dialysis likely will not alleviate patient's pleural effusions. Her baseline bedridden condition requiring ATC nursing care and inability to understand/comply with medical treatments will not allow us to safely perform dialysis. It is my p rofessional opinion that dialysis will not provide her with quality of life or significantly prolong her life. (5) Vascular dementia: * snf resident who is essentially bedridden and requires PEG tube for medication administration of free water administration History of Present Illness Reason for Consultation: PARUL/CKD Attending Physician: Tony Hutton History of Present Illness Mrs. Clark is a 58-year-old white female who is seen at the request of the [facility] hospitalist service for evaluation of PARUL/CKD. Information for the HPI is obtained from review of the EMR. The patient has advanced vascular dementia. She is not able to provide any details of her medical history. She appears much older than her recorded age. HPI is summarized as follows: Mrs. Clark has advanced vascular dementia. She resides at [facility]. Her medical history is significant for poorly controlled AODM, diabetic retinopathy with history of vitreous hemorrhage, his tory of pulmonary embolism and CVA. She suffers from diastolic heart failure and is chronically on O2 at 3 L/min NC. Ms. Clark has a PEG tube in place to provide medications and free water when she is unable/unwilling to take these orally. She was brought to [facility] 01/23/24 for evaluation of agitation and increasing oxygen demands. In the emergency department she pulled out her PEG tube. This was subsequently replaced prior to admission to the hospitalist service. Medical evaluation revealed large bilateral pleural effusions. Patient was seen by pulmonology. Unfortunately the patient was not able to consent or cooperate with thoracentesis. Hospitalist Service attempted medical management with IV furosemide therapy. Unfortunately the patient did not have significant diuresis. Her creatinine tracy from 1.3 on admission to 1.75 and she developed significant hyponatremia with serum sodium 115 mmol/L. Diuretics were discontinued. Free water was provided via PEG tube. Echocardiogram revealed LVEF 50-65% with PASP 40-50 mmHg. Electrolyte abnormalities have corrected and creatinine has returned to baseline once diuretics have been stopped and free water administered. Unfortunately the patient remains hypoxemic despite oxygen of 4 L nasal cannula. Allergies Allergy/AdvReac Type Severity Reaction Status Date / Time No Known Drug Allergies Allergy Unknown . Verified 10/25/18 08:01 Home Medications Medication Instructions Recorded Confirmed Type carvedilol 12.5 mg tablet 25 mg PO Q12H 10/11/18 01/23/24 History duloxetine 30 mg capsule,delayed 30 mg PO DAILY 10/11/18 01/23/24 History release bisacodyl 10 mg rectal suppository 10 mg CA Q48H PRN Constipation 01/23/24 01/23/24 History (Dulcolax (bisacodyl)) ceftriaxone 1 gram solution for 1 g IM Q24H 01/23/24 01/23/24 History injection dextrose 40 % oral gel See Rx Instructions .Route .COMPLEX 01/23/24 01/23/24 History famotidine 20 mg tablet 20 mg PO DAILY 01/23/24 01/23/24 History glucagon 1 mg solution for 1 mg IM DIRECTED PRN 01/23/24 01/23/24 History injection (Glucagon Emergency Kit) Hypoglycemia guaifenesin 1,200 mg tablet, 400 mg PO Q12H 01/23/24 01/23/24 History extended release 12 hr (Mucinex) haloperidol 2 mg tablet 2 mg PO Q12H 01/23/24 01/23/24 History insulin glargine 100 unit/mL (3 5 unit subcut HS 01/23/24 01/23/24 History mL) subcutaneous pen (Lantus Solostar U-100 Insulin) insulin lispro 100 unit/mL See Rx Instructions .Route .COMPLEX 01/23/24 01/23/24 History subcutaneous pen (Humalog KwikPen (U-100) Insulin) ipratropium 0.5 mg-albuterol 3 mg 3 ml inhalation Q4H PRN Shortness 01/23/24 01/23/24 History (2.5 mg base)/3 mL nebulization Of Breath Or Wheezing soln lisinopril 40 mg tablet 40 mg PO DAILY 01/23/24 01/23/24 History magnesium hydroxide 400 mg/5 mL 30 ml PO Q48H PRN Constipation 01/23/24 01/23/24 History oral suspension (Milk of Magnesia) magnesium oxide 400 mg PO DAILY 01/23/24 01/23/24 History metformin 500 mg tablet 500 mg PO BID 01/23/24 01/23/24 History polyethylene glycol 3350 17 gram 17 g PO DAILY 01/23/24 01/23/24 History oral powder packet prednisone 20 mg tablet 40 mg PO DAILY 01/23/24 01/23/24 History rivastigmine 4.6 mg/24 hour 4.6 mg transdermal DAILY 01/23/24 01/23/24 History transdermal patch (Exelon Patch) sodium phosphates 19 gram-7 118 ml CA Q48H PRN Constipation 01/23/24 01/23/24 History gram/118 mL enema (Enema) valproic acid (as sodium salt) 250 250 mg PO Q12H 01/23/24 01/23/24 History mg/5 mL oral solution acetaminophen 650 mg tablet 650 mg PO Q6H PRN Pain 01/24/24 01/24/24 History aspirin 81 mg tablet,delayed 81 mg PO QAM 01/24/24 01/24/24 History release Patient History Medical History History of CVA (cerebrovascular accident) History of pulmonary embolism Diabetes mellitus, type 2 Vitreous hemorrhage Surgical History S/P percutaneous endoscopic gastrostomy (PEG) tube placement History of esophagogastroduodenoscopy (EGD) History of colonoscopy History of hysterectomy Family History Father Cancer Mother Cancer Social History Smoking Status: Unknown if ever smoked Second Hand Exposure: No; Do You Dip or Chew Tobacco: No; Hx Alcohol Use: No Preferred Language: Welsh Communication Ability: Impaired Communication Ability Comment: advanced dementia Flaker Operator Required: No Beliefs That Will Affect Care: None Current Living Situation: Senior Living Feels Safe at Home: Yes Assistive Devices: Oxygen - Continuous and Wheelchair Review of Systems Review of Systems: Unobtainable due to cognitive status Physical Exam Constitutional: + ill appearing (Agitated) Eyes: PERRL, conjunctivae normal, anicteric sclerae ENMT: external ear and nose normal, oropharynx normal Neck: trachea midline, no thyromegaly Respiratory: Poor air exchange with diffuse expiratory wheezing diminished breath sounds two thirds up right side, one third up left side. Cardiovascular: RRR, no murmur, no edema Gastrointestinal (Abdomen): normal bowel sounds, soft, nontender, no hepatosplenomegaly Skin: + turgor decreased; no rashes Neurologic: Speech / Cognition: + abnormal cognition (Agitated, does not follow commands) Results & Data Vital Signs (Past 12 Hours) Vital Signs Temp Pulse Pulse Resp BP Pulse Ox O2 Del Method 01/25/24 15:51 72 01/25/24 15:15 68 22 92 Nasal Cannula 01/25/24 14:58 36.5 C 74 24 194/97 H 91 Nasal Cannula 01/25/24 11:19 66 20 94 Nasal Cannula 01/25/24 09:52 Nasal Cannula 01/25/24 07:36 36.3 C L 68 20 175/84 H 91 Nasal Cannula 01/25/24 07:26 77 01/25/24 07:19 62 20 93 Nasal Cannula O2 Flow Rate 01/25/24 15:51 01/25/24 15:15 4 01/25/24 14:58 3 01/25/24 11:19 3 01/25/24 09:52 3 01/25/24 07:36 3 01/25/24 07:26 01/25/24 07:19 3 Laboratory Results Laboratory Results WBC 7.25 K/ul (4.8-10.8) 01/25/24 09:51 RBC 3.92 M/uL (4.20-5.40) L 01/25/24 09:51 Hgb 11.5 g/dl (12.0-16.0) L 01/25/24 09:51 Hct 36.7 % (37.0-47.0) L 01/25/24 09:51 MCV 93.6 fL (80.0-100.0) 01/25/24 09:51 MCH 29.3 pg (25.0-34.0) 01/25/24 09:51 MCHC 31.3 g/dL (32.0-36.0) L 01/25/24 09:51 RDW Std Deviation 57.4 fL (36.4-46.3) H 01/25/24 09:51 RDW Coeff of Laura 16.7 % (11.5-14.5) H 01/25/24 09:51 Plt Count 271 K/uL (130-400) 01/25/24 09:51 MPV 10.3 fL (9.4-12.4) 01/25/24 09:51 Immature Gran % (Auto) 0.6 % 01/25/24 09:51 Neut % (Auto) 70.2 % 01/25/24 09:51 Lymph % (Auto) 14.5 % 01/25/24 09:51 [place] % (Auto) 8.3 % 01/25/24 09:51 Eos % (Auto) 5.8 % 01/25/24 09:51 Baso % (Auto) 0.6 % 01/25/24 09:51 Neut # (Auto) 5.10 K/uL (1.40-6.50) 01/25/24 09:51 Lymph # (Auto) 1.05 K/uL (1.20-3.40) L 01/25/24 09:51 [place] # (Auto) 0.60 K/uL (0.11-0.59) H 01/25/24 09:51 Eos # (Auto) 0.42 K/uL (0.00-0.50) 01/25/24 09:51 Baso # (Auto) 0.04 K/uL (0.00-0.20) 01/25/24 09:51 Immature Gran # (Auto) 0.04 K/uL (0.01-0.20) 01/25/24 09:51 Sodium 139 mmol/L (136-145) D 01/25/24 09:51 Potassium 4.3 mmol/L (3.5-5.1) 01/25/24 09:51 Chloride 101 mmol/L (98-107) 01/25/24 09:51 Carbon Dioxide 34 mmol/L (21-32) H 01/25/24 09:51 Anion Gap 4 (3-11) 01/25/24 09:51 BUN 23 mg/dl (6-23) 01/25/24 09:51 Creatinine 1.34 mg/dl (0.6-1.2) H D 01/25/24 09:51 Est Cr Clr Drug Dosing 44.2 ml/min 01/25/24 09:51 eGFR 45.96 01/25/24 09:51 BUN/Creatinine Ratio 17.2 (10-20) 01/25/24 09:51 Glucose 241 mg/dl (70-99(Fasting)) H 01/25/24 09:51 POC Glucose 222 mg/dl (70-99) H 01/25/24 12:12 Calcium 9.0 mg/dl (8.6-10.3) 01/25/24 09:51 Magnesium 2.0 mg/dl (1.7-2.4) 01/25/24 09:51 Total Bilirubin 0.3 mg/dl (0.2-1.0) 01/23/24 18:02 AST 9 U/L (13-39) L 01/23/24 18:02 ALT 10 U/L (7-52) 01/23/24 18:02 Alkaline Phosphatase 137 U/L (34-104) H 01/23/24 18:02 Troponin I High Sens 14.4 pg/ml (0-14) H 01/24/24 07:25 B-Natriuretic Peptide 975 pg/ml (0-100) H 01/23/24 23:45 Total Protein 7.2 gm/dl (6.0-8.3) 01/23/24 18:02 Albumin 3.7 gm/dl (3.4-5.0) 01/23/24 18:02 Globulin 3.5 gm/dl (2.5-4.0) 01/23/24 18:02 Albumin/Globulin Ratio 1.1 (0.9-2) 01/23/24 18:02 Lipase 5 U/L (11-82) L 01/23/24 18:02 TSH 3.234 uIu/ml (0.300-4.500) 01/25/24 09:51 Urine Color Yellow 01/24/24 08:30 Urine Appearance Clear (Clear) 01/24/24 08:30 Urine pH 5.5 (4.5-7.5) 01/24/24 08:30 Ur Specific [place] 1.016 (1.000-1.030) 01/24/24 08:30 Urine Protein 3+ (Negative) H 01/24/24 08:30 Urine Glucose (UA) Trace (Negative) H 01/24/24 08:30 Urine Ketones Trace (Negative) H 01/24/24 08:30 Urine Blood Negative (Negative) 01/24/24 08:30 Urine Nitrite Negative (Negative) 01/24/24 08:30 Urine Bilirubin Negative (Negative) 01/24/24 08:30 Urine Urobilinogen Negative (Negative) 01/24/24 08:30 Ur Leukocyte Esterase Trace (Negative) H 01/24/24 08:30 Urine WBC (Auto) 6-10 /hpf (0-5) H 01/24/24 08:30 Urine RBC (Auto) 0-2 /hpf (0-2) 01/24/24 08:30 U Hyaline Cast (Auto) 0-2 /lpf (0-2) 01/24/24 08:30 U Epithel Cells (Auto) 3-5 /hpf (0-2) H 01/24/24 08:30 Urine Bacteria (Auto) None Seen (None Seen) 01/24/24 08:30 Ur Random Creatinine 69.4 mg/dl 01/24/24 08:27 Nasal Screen MRSA (PCR) Negative (Negative) 01/23/24 20:11 Adenovirus (PCR) Not Detected (NotDetected) 01/23/24 20:11 B. pertussis DNA (PCR) Not Detected (NotDetected) 01/23/24 20:11 B.parapertussis DNA PCR Not Detected (NotDetected) 01/23/24 20:11 C. pneumoniae DNA (PCR) Not Detected (NotDetected) 01/23/24 20:11 Coronavirus OC43 (PCR) Not Detected (NotDetected) 01/23/24 20:11 Coronavirus HKU1 (PCR) Not Detected (NotDetected) 01/23/24 20:11 Coronavirus 229E (PCR) Not Detected (NotDetected) 01/23/24 20:11 SARS-CoV-2 (PCR) Not Detected (NotDetected) 01/23/24 20:11 Coronavirus NL63 (PCR) Not Detected (NotDetected) 01/23/24 20:11 Human Metapneumovir PCR Not Detected (NotDetected) 01/23/24 20:11 Influenza Type A (PCR) Not Detected (NotDetected) 01/23/24 20:11 Influenza Type B (PCR) Not Detected (NotDetected) 01/23/24 20:11 M. pneumoniae (PCR) Not Detected (NotDetected) 01/23/24 20:11 Parainfluenza 1 (PCR) Not Detected (NotDetected) 01/23/24 20:11 Parainfluenza 2 (PCR) Not Detected (NotDetected) 01/23/24 20:11 Parainfluenza 3 (PCR) Not Detected (NotDetected) 01/23/24 20:11 Parainfluenza 4 (PCR) Not Detected (NotDetected) 01/23/24 20:11 RSV (PCR) Not Detected (NotDetected) 01/23/24 20:11 Entero/Rhino (PCR) Not Detected (NotDetected) 01/23/24 20:11 Impressions Chest X-Ray 01/23/24 17:39 XR chest 1V portable HISTORY: 58 years-old Female Chest pain, nonspecific COMPARISON: None TECHNIQUE: AP view the chest FINDINGS: Cardiac silhouette is enlarged. Pulmonary vascular congestion with interstitial opacities. No pneumothorax. [id number] left with large right pleural effusions. Bibasilar consolidation with right lung volume loss. IMPRESSION: 1. Cardiomegaly with pulmonary edema. 2. Right greater than left layering pleural effusions with bibasilar consolidation. ACT 112: Negative or not required by law. The above report was generated using voice recognition software. It may contain grammatical, syntax or spelling errors. Electronically signed by: Sudhakar Ellis M.D. 01/23/2024 6:14 PM KUB X-Ray 01/23/24 20:02 Exam(s): XR KUB EXAM: XR Abdomen, 1 View CLINICAL HISTORY: Reason for exam: gastro to confirm. TECHNIQUE: Frontal supine view of the abdomen/pelvis. COMPARISON: No relevant prior studies available. FINDINGS: Gastrointestinal tract: Mild fecal retention, correlate for constipation. No dilation. Bones/joints: Unremarkable. No acute fracture. Tubes, lines and devices: PEG tube in stomach. IMPRESSION: 1. Mild fecal retention, correlate for constipation. 2. PEG tube in stomach. Electronically signed by: Vitor Gonzales MD 01/23/24 23:51 PM PG Care Time/CCT Total # of Minutes Spent Total Time Spent with Patient: Total time spent is greater than 50% in coordination of care (as documented) at patient's floor/unit and/or counseling patient: Coding Level of Care Code 12865 IN/OBS CONSULT LVL 5,80M Diagnoses PARUL (acute kidney injury) N17.9 CKD (chronic kidney disease) stage 3, GFR 30-59 ml/min N18.30 Hypernatremia E87.0 Bilateral pleural effusion J90 Vascular dementia F01.50
--- NOTE | 2024-01-25 16:46 | Procedure Note ---
Procedure Note Date of Service January 25, 2024 Procedure: Diagnostic therapeutic ultrasound-guided catheter thoracentesis, right [employer] Reconnaissance Vehicle Crewman: Dr. Osmel Mo Indication: Pleural effusion Consent: Procedure was emergent. Multiple attempts have been made to contact the patient's family with no success. The patient is obtunded and unable to provide verbal or written consent. Procedure was deemed medically emergent by the attending physician and two-physician consent was obtained. Anesthesia: 8 mL's 1% lidocaine without epinephrine local. Procedure: Consent was verified and timeout performed. Appropriate imaging studies were reviewed prior to the procedure. Patient was placed in a seated position and limited thoracic ultrasound was performed of the bilateral chest. Large bilateral free-flowing pleural effusions were identified right greater than left. Site appropriate for thoracentesis on the right was selected. The skin was prepped and draped in normal sterile fashion. Lidocaine was used for local analgesia. Fluid was aspirated via the finder needle. A small skin ana cristina was made with the scalpel and the catheter over the needle apparatus was advanced over the rib into the pleural space. Using the syringe one-way valve system, a total of 1500 mL's of clear yellow fluid was removed. Procedure was terminated due to patient coughing. The catheter was removed and observed to be intact. A sterile dressing was applied. Post procedure chest x-ray was ordered. Residual fluid was identified on ultrasound. Fluid was sent for cytology, cell count differential, Gram stain and culture, LDH, pH, glucose, and total protein. The patient tolerated the procedure well without obvious complication It is likely that the pleural fluid will rapidly reaccumulate. Refractory pleural effusions and heart failure are a marker of poor prognosis with a fairly high 60 to 90-day mortality rate. If the patient is unable to be diuresed, would consider palliative care consultation especially given her underlying dementia, vascular status. Think she is a poor candidate for any consideration for renal replacement therapy. I see no role for intubation or mechanical ventilation at this point in time in this patient as it is unlikely to change her underlying process. [facility] [place] Codes (Charges) Pulmonary/Thoracic Procedure 1: Pulmonary and Thoracic: 73041 Thoracentesis w imaging Coding CPT Codes Pulmonary/Thoracic - Pulmonary and Thoracic: 80180 Thoracentesis w imaging ([id number]) Additional Codes Date of Service ([facility].SURGERY)
[2024-01-25 17:02] LABS: Glucose Pleural Fluid 196 mg/dl; LDH Pleural Fluid 84 U/L; Total Protein Pleural Fluid < 3.0 gm/dl
--- NOTE | 2024-01-25 17:17 | XRay Report ---
XR chest 1V portable CLINICAL HISTORY: S/P Thoracentesis TECHNIQUE: Single frontal radiograph of the chest was obtained. Comparison: Comparison is made to chest radiograph 01/23/2024 FINDINGS: No lines and tubes are seen. Cardiomegaly is noted. Moderate left and small right pleural effusions a re seen, the right effusion is significantly decreased from prior exam. Underlying airspace opacities are seen. No pneumothorax. IMPRESSION: 1. Interval decrease in size of right pleural effusion status post thoracentesis. No pneumothorax. 2. Stable left pleural effusion. 3. Additional findings as above. ACT 112: Negative or not required by law. Electronically signed by: Mike Lakhani M.D. 01/25/2024 5:16 PM
[2024-01-25] MEDS ORDERED: ONDANSETRON INJ 2 MG/ML 2 ML VIAL IV PRN (17:33)
[2024-01-25 17:46] LABS: Appearance Pleural Fluid Clear; Color Pleural Fluid Yellow; Lymphocytes, Fluid 17 %; Mono,Macrophage,Mesothelial 77 %; Neutrophils, Fluid 6 %; RBC Pleural Fluid Auto < 2000 /uL; Source Pleural Fluid Right Lung; WBC Pleural Fluid Auto 140 /uL
[2024-01-25 18:32] LABS: Creatinine Urine Random 36.6 mg/dl; Protein Creatinine Ratio Urine 9.2 (0-0.2); Total Protein Urine Random 335.8 mg/dl (0-11.9)
[2024-01-25] MEDS ORDERED: ALBUT/IPRATROP 3MG/0.5MG NEB 3 ML VIAL INH PRN (19:17)
--- NOTE | 2024-01-25 19:46 | Hospitalist Progress Note ---
Date of Service January 25, 2024 Assessment & Plan (1) Acute exacerbation of congestive heart failure: Plan: This is a 58 y/o female who presents from the [facility] with shortness of breath, hypoxemia as she had pulled off her supplemental oxygen. Also with elevated creatinine from baseline/PARUL, and she self discontinued her PEG tube in the ER. Chest x-ray with large right pleural effusion and small to moderate left pleural effusion. She was also found to be hypernatremic Also with peripheral edema She was given IV Lasix in the ER and had her PEG tube replaced Acute on chronic HFpEF Also with some acute encephalopathy likely secondary to hypernatremia in the setting of severe dementia Admitted with possible exacerbation of CHF with unknown EF as no old records available at the time of admission IV Lasix x 1 was given in the ER and now with worsening hypernatremia-hold further Lasix Chest x-ray with large pleural effusions-consult pulmonology for thoracentesis- recommended to hold off for now as she likely will not hold still for procedure Echocardiogram here with preserved EF, incomplete study due to inability to cooperate, and elevated right-sided pressures consistent with pulmonary hypertension Follow I's and O's, daily weights Hold off on further diuresis attempts at this time Continue supplemental O2 to keep pulse ox greater than 90% On 01/25/24, Patient was doing worse. required 15 liters of nasal cannula. Unable to reach family to obtain consent, emergency consent obtained for thoracocenthesis. Dr. Mo states that her pleural effusion may return. He would not recommend intubating patient given poor quality of life. Discussed with nephrology, not a candidate for dialysis as patrient would need to sit still for 4 hours 3 times a week and also this would not improve her quality of life. After procedure, was able to discuss case with and daughter, will transition to comfort measures in case patient decompensates overnight. (2) Bilateral pleural effusion: Plan: As above, most likely from heart failure Pulmonology consult appreciated (3) Hypernatremia: Plan: Sodium 150 but corrected for hyperglycemia goes up to 152 Worsened after receiving IV Lasix Is with free water deficit despite overall total body volume up Give 1 L D5W at 80 mL/h, add free water flushes 100 mL every 4 hours to PEG tube Follow BMP Encourage p.o. free water intake (4) CKD (chronic kidney disease) stage 3, GFR 30-59 ml/min: Plan: PARUL in setting of possible CKD; Cr 1.75 with baseline 1.3 or below Was given IV Lasix and creatinine is down to 1.64-holding further Lasix Hold home lisinopril, metformin Follow BMP Avoid nephrotoxins, renally dose medications when necessary (5) Chronic respiratory failure with hypoxia, on home oxygen therapy: Plan: On 3 L nasal cannula chronically, likely secondary to heart failure (6) Diabetes mellitus, type 2: Plan: Blood sugars are quite elevated here, recent hemoglobin A1c 8.1%, on Lantus 5 units daily and Humalog sliding scale as an outpatient Start Lantus 7 units daily and increase correction factor and carb ratio with NovoLog (7) Vascular dementia: Plan: With PEG tube placed to be able to administer medications in case she refuses them is what was reported by care home. Otherwise, she is able to eat a mechanical soft diet With aphasia, and reportedly only oriented x 1, but is nonverbal here Continue Exelon patch, supportive care On one-to-one for pulling out PEG tube and IVs Continue Haldol 2 Mg p.o. twice daily and continue home valproic acid 250 Mg p.o. twice daily presumably for behavioral/mood reasons as there is no mention of seizure disorder on paperwork from care home Continue duloxetine (8) HTN (hypertension): Plan: Blood pressures are elevated and lisinopril on hold for acute kidney injury Amlodipine is in the external med history but is not currently on her medication reconciliation-hold for now-this may also be causing her peripheral edema so would not restart Resume home carvedilol 25 Mg p.o. twice daily (9) GERD (gastroesophageal reflux disease): Plan: Resume home Pepcid and give lansoprazole which can be placed through PEG tube if refuses p.o. Protonix (10) History of CVA (cerebrovascular accident): Plan: Mentioned in care home records, likely because of her vascular dementia Resume home aspirin 81 mg daily (11) S/P percutaneous endoscopic gastrostomy (PEG) tube placement: Plan: This was pulled out by the patient in the ER and replaced by the ER physician Cancel GI consultation This is only used as needed for medications when she refuses them by mouth Using free water flushes for now for hypernatremia Plan DVT PPx -- SCDs,add heparin Dispo-continued stay on medical unit with telemetry Full COde based on POLST from care home records I called both numbers listed for the and the number listed for the daughter and the chart and got no answers. Left voicemails for them to call back. May benefit from palliative consult and CODE STATUS discussion given severe dementia and heart failure with large pleural effusions once family member calls back. She cannot be consented for thoracentesis at this time. Admission and Anticipated Discharge Date Admission Date: January 23, 2024 Subjective 58 yo female reports no new symptoms. Review of Systems Review of Systems: All systems reviewed & are unremarkable except as noted in HPI & below Physical Exam Constitutional: WD/WN, vitals as above + obese using accessory muscles to breath. Eyes: + anicteric sclerae Respiratory: + tachypneic (Mild at rest); no cough Auscultation: + diminished lung sounds (At bases right greater than left); no crackles, no rhonchi and no wheezes Cardiovascular: Rate/Rhythm: regular rate and regular rhythm Heart Sounds: no murmur Extremities: + edema (2+ edema of the legs bilaterally) Gastrointestinal (Abdomen): Inspection/Auscultation: normal bowel sounds; + abdomen abnormal to inspection (PEG tube in place) and abdomen not distended Percussion/Palpation: abdomen soft; abdomen nontender Neurologic: no focal motor deficits Speech / Cognition: + expressive aphasia and + abnormal cognition Psychiatric: Orientation: alert; + not oriented x 3 Results & Data Results & Data Vital Signs (Past 12 Hours) Vital Signs Temp Pulse Pulse Resp BP Pulse Ox O2 Del Method 01/25/24 16:36 72 18 94 01/25/24 15:51 72 01/25/24 15:15 68 22 92 Nasal Cannula 01/25/24 14:58 36.5 C 74 24 194/97 H 91 Nasal Cannula 01/25/24 11:19 66 20 94 Nasal Cannula 01/25/24 09:52 Nasal Cannula O2 Flow Rate FiO2 01/25/24 16:36 40 01/25/24 15:51 01/25/24 15:15 4 01/25/24 14:58 3 01/25/24 11:19 3 01/25/24 09:52 3 PG Care Time/CCT Total # of Minutes Spent Total Time Spent with Patient: Total time spent is greater than 50% in coordination of care (as documented) at patient's floor/unit and/or counseling patient: Prolonged Care Time Prolonged Care Time: Yes Total Prolonged Care Time: 65 9:00 to 9:35 16:30 to 17:00 Coding Level of Care Code 58664 SUB INP/OBS CARE 3/50MIN (25 - SIGNIFICANT, SEPARATELY IDENTIFIABLE ) Diagnoses Acute exacerbation of congestive heart failure I50.9 Bilateral pleural effusion J90 Hypernatremia E87.0 CKD (chronic kidney disease) stage 3, GFR 30-59 ml/min N18.30 Chronic respiratory failure with hypoxia, on home oxygen therapy J96.11; Z99.81 Diabetes mellitus, type 2 E11.9 Vascular dementia F01.50 HTN (hypertension) I10 GERD (gastroesophageal reflux disease) K21.9 History of CVA (cerebrovascular accident) Z86.73 S/P percutaneous endoscopic gastrostomy (PEG) tube placement Z93.1 Additional Codes Prolonged Care Time - Prolonged Care Time: Yes ([id number])
[2024-01-25] MEDS: LORazepam 2 MG/1 ML VIAL IV PRN (22:27)
[2024-01-26 06:23] LABS: Hematocrit (blood only) 34.6 % (37.0-47.0); Hemoglobin 10.9 g/dl (12.0-16.0); Mean Corpuscular Hemoglobin 28.9 pg (25.0-34.0); Mean Corpuscular Hgb Conc 31.5 g/dL (32.0-36.0); Mean Corpuscular Volume 91.8 fL (80.0-100.0); Mean Platelet Volume 10.5 fL (9.4-12.4); Platelet Count 224 K/uL (130-400); RDW Standard Deviation 54.2 fL (36.4-46.3); Red Blood Count 3.77 M/uL (4.20-5.40); White Blood Count 5.94 K/ul (4.8-10.8)
[2024-01-26 06:46] LABS: Albumin Globulin Ratio 1.1 (0.9-2); Albumin Level 2.5 gm/dl (3.4-5.0); BUN Creatinine Ratio 16.4 (10-20); Bilirubin,Total 0.4 mg/dl (0.2-1.0); Calcium 8.5 mg/dl (8.6-10.3); Creatinine Clr Calc Pharmacy 46.2 ml/min; Globulin 2.3 gm/dl (2.5-4.0); Total Protein 4.8 gm/dl (6.0-8.3)
--- NOTE | 2024-01-26 08:23 | Pulmonology Progress Note ---
Date of Service January 26, 2024 Assessment & Plan (1) Bilateral pleural effusion: (2) Chronic respiratory failure with hypoxia, on home oxygen therapy: (3) Cardiorenal syndrome: (4) Hypernatremia: (5) PARUL (acute kidney injury): (6) Elevated brain natriuretic peptide (BNP) level: Plan Impression: 58-year-old female with a complex history of vascular dementia, diastolic heart failure, admitted with hypoxemia and bilateral pleural effusions. Status postthoracentesis on the right yesterday for 1.5 L. Fluid is transudative. Recommendations: 1. Bilateral pleural effusions: Transudative. Related to probable diastolic dysfunction as well as MR. Not a candidate for any advanced therapies. Recommend continued diuresis and blood pressure control with target blood pressure less than 130/80. Will put her on IV Lasix 40 mg daily and allow hospitalist to adjust dose and manage going forward. 2. Hypoxemia: Back to baseline oxygen saturations. 3. Defer to hospitalist management of blood pressure. 4. Palliative care may be appropriate. Defer to hospitalist Pulmonary will sign off at this point in time. Feel free to contact us with questions or concerns Admission and Anticipated Discharge Date Admission Date: January 23, 2024 Subjective Patient seen and examined this morning. The patient is somewhat obtunded. Her respiratory status is improved and she is down to 3 L nasal cannula. CODE STATUS was apparently addressed and the patient is now DNR/DNI. Review of Systems 2 Review of Systems: Unobtainable due to reduced consciousness Physical Exam 2 Constitutional: + frail appearing Neck: trachea midline, no thyromegaly Respiratory: no labored breathing, no cough and not tachypneic A uscultation: + diminished lung sounds Cardiovascular: RRR, no murmur, no edema Gastrointestinal (Abdomen): normal bowel sounds, soft, nontender, no hepatosplenomegaly Musculoskeletal: Extremities: extremities normal to inspection Skin: no rashes, warm and dry Lymphatic: no cervical lymphadenopathy Results & Data Results & Data Vital Signs (Past 12 Hours) Vital Signs O2 Del Method O2 Flow Rate 01/26/24 03:31 Nasal Cannula 3 diuresed 1.9 L Laboratory Results 01/26/24 05:43 01/26/24 05:43 Pleural fluid studies: Differential: 6% neutrophils, 17% lymphocytes, 77% mesothelial cells pH 7.4 Total protein less than 3 LDH 84 Glucose 196 Cytology pending Gram stain few white blood cells with no organisms Diagnostic Findings Postthoracentesis chest x-ray independently reviewed. Decrease in diffusion, right side. Improvement in pulmonary edema. Persistent bilateral pleural effusions are noted. PG Care Time/CCT Total # of Minutes Spent Total Time Spent with Patient: Total time spent is greater than 50% in coordination of care (as documented) at patient's floor/unit and/or counseling patient: Coding Level of Care Code 77479 SUB INP/OBS CARE 2/35MIN Diagnoses Bilateral pleural effusion J90 Chronic respiratory failure with hypoxia, on home oxygen therapy J96.11; Z99.81 Cardiorenal syndrome I13.10 Hypernatremia E87.0 PARUL (acute kidney injury) N17.9 Elevated brain natriuretic peptide (BNP) level R79.89
--- NOTE | 2024-01-26 08:58 | Nephrology Progress Note ---
Date of Service January 26, 2024 Assessment & Plan (1) PARUL (acute kidney injury): Plan: * PARUL on CKD related to intravascular volume contraction. This has resolved following gentle hydration/free water administration * Admission urine microscopy was acellular. Urinalysis revealed a concentrated sample positive for protein. UACR with high grade proteinuria. Not a candidate for biopsy or immunosuppressive therapy due to inability to cooperate w/ treatment, chronic debilitated condition (2) CKD (chronic kidney disease) stage 3, GFR 30-59 ml/min: Plan: * Presumed CKD. Admission creatinine 1.3. No prior documentation of renal disease in hospital or [facility] EMR, however, patient likely has underlying DKD related to poorly controlled AODM. She does have a documented history of poor glycemic control and retinopathy (3) Hypernatremia: Plan: * Corrected. Continue free water flushes 100 cc every 4 hours the PEG tube. Monitor BMP (4) Bilateral pleural effusion: Plan: * Transudative effusions related to diastolic heart failure/pulmonary hypert ension * R thoracentesis w/ 1.5 L volume removal completed 01/25/24. * Expect that effusions will reoccur quickly as cause has not been corrected * I was asked by the hospitalist service to comment on whether patient is a dialysis candidate: Dialysis likely will not alleviate patient's pleural effusions. Her baseline bedridden condition requiring ATC nursing care and inability to understand/comply with medical treatments will not allow us to safely perform dialysis. It is my professional opinion that dialysis will not provide her with quality of life or significantly prolong her life. * Recommend consultation w/ palliative care to define goals of care (5) Vascular dementia: Plan: * [facility] who is essentially bedridden and requires PEG tube for medication administration of free water administration Admission and Anticipated Discharge Date Admission Date: January 23, 2024 Subjective Mrs. Clark was evaluated in her hospital room this morning. She was awake, agitated, nonconversant. Sitter was present at bedside Review of Systems Review of Systems: Unobtainable due to cognitive status Physical Exam Constitutional: + ill appearing (Agitated) Eyes: PERRL, conjunctivae normal, anicteric sclerae ENMT: external ear and nose normal, oropharynx normal Neck: trachea midline, no thyromegaly Respiratory: appears comfortable on O2 at 4L/min NC. Diminished BS at bases bilaterally Cardiovascular: RRR, no murmur, no edema Gastrointestinal (Abdomen): normal bowel sounds, soft, nontender, no hepatosplenomegaly Skin: + turgor decreased; no rashes Neurologic: Speech / Cognition: + abnormal cognition (Agitated, does not follow commands) Results & Data Vital Signs (Past 12 Hours) Vital Signs Temp Pulse Resp BP Pulse Ox O2 Del Method O2 Flow Rate 01/26/24 08:17 36.1 C L 80 20 186/85 H 89 L Nasal Cannula 4 01/26/24 03:31 Nasal Cannula 3 Laboratory Results Laboratory Results - last 24 hr 01/25/24 01/25/24 01/25/24 09:51 12:12 16:30 WBC 7.25 RBC 3.92 L Hgb 11.5 L Hct 36.7 L MCV 93.6 MCH 29.3 MCHC 31.3 L RDW Std Deviation 57.4 H RDW Coeff of Laura 16.7 H Plt Count 271 MPV 10.3 Immature Gran % (Auto) 0.6 Neut % (Auto) 70.2 Lymph % (Auto) 14.5 Sharkey % (Auto) 8.3 Eos % (Auto) 5.8 Baso % (Auto) 0.6 Neut # (Auto) 5.10 Lymph # (Auto) 1.05 L Sharkey # (Auto) 0.60 H Eos # (Auto) 0.42 Baso # (Auto) 0.04 Immature Gran # (Auto) 0.04 Sodium 139 D Potassium 4.3 Chloride 101 Carbon Dioxide 34 H Anion Gap 4 BUN 23 Creatinine 1.34 H D Est Cr Clr Drug Dosing 44.2 eGFR 45.96 BUN/Creatinine Ratio 17.2 Glucose 241 H POC Glucose 222 H Calcium 9.0 Magnesium 2.0 Total Bilirubin AST ALT Alkaline Phosphatase Total Protein Albumin Globulin Albumin/Globulin Ratio TSH 3.234 Ur Random Creatinine U Random Total Protein Ur Random Sodium Protein/Creatinin Ratio Fluid Neutrophils % 6 Fluid Lymphocytes % 17 Fluid Meso/Macro/Sharkey % 77 Fluid Comment Pleural Fluid Source Right Lung Pleural Color Yellow Pleural Appearance Clear Pleural pH 7.40 Pleural WBC (Auto) 140 Pleural RBC (Auto) < 2000 Pleural Total Protein < 3.0 Pleural LDH 84 Pleural Glucose 196 01/25/24 01/25/24 01/25/24 17:09 17:20 19:41 WBC RBC Hgb Hct MCV MCH MCHC RDW Std Deviation RDW Coeff of Laura Plt Count MPV Immature Gran % (Auto) Neut % (Auto) Lymph % (Auto) Sharkey % (Auto) Eos % (Auto) Baso % (Auto) Neut # (Auto) Lymph # (Auto) Sharkey # (Auto) Eos # (Auto) Baso # (Auto) Immature Gran # (Auto) Sodium Potassium Chloride Carbon Dioxide Anion Gap BUN Creatinine Est Cr Clr Drug Dosing eGFR BUN/Creatinine Ratio Glucose POC Glucose 149 H 180 H Calcium Magnesium Total Bilirubin AST ALT Alkaline Phosphatase Total Protein Albumin Globulin Albumin/Globulin Ratio TSH Ur Random Creatinine 36.6 U Random Total Protein 335.8 H Ur Random Sodium 95 Protein/Creatinin Ratio 9.2 H Fluid Neutrophils % Fluid Lymphocytes % Fluid Meso/Macro/Sharkey % Fluid Comment Pleural Fluid Source Pleural Color Pleural Appearance Pleural pH Pleural WBC (Auto) Pleural RBC (Auto) Pleural Total Protein Pleural LDH Pleural Glucose 01/26/24 01/26/24 05:43 08:03 WBC 5.94 RBC 3.77 L Hgb 10.9 L Hct 34.6 L MCV 91.8 MCH 28.9 MCHC 31.5 L RDW Std Deviation 54.2 H RDW Coeff of Laura 16.0 H Plt Count 224 MPV 10.5 Immature Gran % (Auto) Neut % (Auto) Lymph % (Auto) Sharkey % (Auto) Eos % (Auto) Baso % (Auto) Neut # (Auto) Lymph # (Auto) Sharkey # (Auto) Eos # (Auto) Baso # (Auto) Immature Gran # (Auto) Sodium 143 Potassium 4.0 Chloride 101 Carbon Dioxide 39 H Anion Gap 3 BUN 21 Creatinine 1.28 H Est Cr Clr Drug Dosing 46.2 eGFR 48.56 BUN/Creatinine Ratio 16.4 Glucose 162 H POC Glucose 148 H Calcium 8.5 L Magnesium Total Bilirubin 0.4 AST 10 L ALT 7 Alkaline Phosphatase 96 Total Protein 4.8 L Albumin 2.5 L Globulin 2.3 L Albumin/Globulin Ratio 1.1 TSH Ur Random Creatinine U Random Total Protein Ur Random Sodium Protein/Creatinin Ratio Fluid Neutrophils % Fluid Lymphocytes % Fluid Meso/Macro/Sharkey % Fluid Comment Pleural Fluid Source Pleural Color Pleural Appearance Pleural pH Pleural WBC (Auto) Pleural RBC (Auto) Pleural Total Protein Pleural LDH Pleural Glucose Diagnostic Findings CXR 01/25/24: Interval decrease in size of right pleural effusion status post thoracentesis. No pneumothorax. Stable left pleural effusion. PG Care Time/CCT Total # of Minutes Spent Total Time Spent with Patient: Total time spent is greater than 50% in coordination of care (as documented) at patient's floor/unit and/or counseling patient: Coding Level of Care Code 10491 SUB INP/OBS CARE 3/50MIN Diagnoses PARUL (acute kidney injury) N17.9 CKD (chronic kidney disease) stage 3, GFR 30-59 ml/min N18.30 Hypernatremia E87.0 Bilateral pleural effusion J90 Vascular dementia F01.50
[2024-01-26] MEDS: FUROSEMIDE 40 MG/4 ML VIAL IV SCH (09:07)
[2024-01-26] MEDS: MoRPHine SULFATE 2 MG/ML CARP IV PRN (09:44)
--- NOTE | 2024-01-26 16:58 | Hospitalist Progress Note ---
Date of Service January 26, 2024 Assessment & Plan (1) Acute exacerbation of congestive heart failure: Plan: This is a 58 y/o female who presents from the [facility] with shortness of breath, hypoxemia as she had pulled off her supplemental oxygen. Also with elevated creatinine from baseline/PARUL, and she self discontinued her PEG tube in the ER. Chest x-ray with large right pleural effusion and small to moderate left pleural effusion. She was also found to be hypernatremic Also with peripheral edema She was given IV Lasix in the ER and had her PEG tube replaced Acute on chronic HFpEF Also with some acute encephalopathy likely secondary to hypernatremia in the setting of severe dementia Admitted with possible exacerbation of CHF with unknown EF as no old records available at the time of admission IV Lasix x 1 was given in the ER and now with worsening hypernatremia-hold further Lasix Chest x-ray with large pleural effusions-consult pulmonology for thoracentesis- recommended to hold off for now as she likely will not hold still for procedure Echocardiogram here with preserved EF, incomplete study due to inability to cooperate, and elevated right-sided pressures consistent with pulmonary hypertension Follow I's and O's, daily weights Hold off on further diuresis attempts at this time Continue supplemental O2 to keep pulse ox greater than 90% On 01/25/24, Patient was doing worse. required 15 liters of nasal cannula. Unable to reach family to obtain consent, emergency consent obtained for thoracocenthesis. Dr. Mo states that her pleural effusion may return. He would not recommend intubating patient given poor quality of life. Discussed with nephrology, not a candidate for dialysis as patrient would need to sit still for 4 hours 3 times a week and also this would not improve her quality of life. After procedure, was able to discuss case with and daughter, will transition to comfort measures in case patient decompensates overnight. 01/25 Patient is sedated, she required benzos overnight. Family at bedside, discussed poor quality of life due to dementia. Family is deciding on goals of care and leaning towards hospice. (2) Bilateral pleural effusion: Plan: As above, most likely from heart failure Pulmonology consult appreciated (3) Hypernatremia: Plan: Sodium 150 but corrected for hyperglycemia goes up to 152 Worsened after receiving IV Lasix Is with free water deficit despite overall total body volume up Give 1 L D5W at 80 mL/h, add free water flushes 100 mL every 4 hours to PEG tube Follow BMP Encourage p.o. free water intake (4) CKD (chronic kidney disease) stage 3, GFR 30-59 ml/min: Plan: PARUL in setting of possible CKD; Cr 1.75 with baseline 1.3 or below Was given IV Lasix and creatinine is down to 1.64-holding further Lasix Hold home lisinopril, metformin Follow BMP Avoid nephrotoxins, renally dose medications when necessary (5) Chronic respiratory failure with hypoxia, on home oxygen therapy: Plan: On 3 L nasal cannula chronically, likely secondary to heart failure (6) Diabetes mellitus, type 2: Plan: Blood sugars are quite elevated here, recent hemoglobin A1c 8.1%, on Lantus 5 units daily and Humalog sliding scale as an outpatient Start Lantus 7 units daily and increase correction factor and carb ratio with NovoLog (7) Vascular dementia: Plan: With PEG tube placed to be able to administer medications in case she refuses them is what was reported by residential. Otherwise, she is able to eat a mechanical soft diet With aphasia, and reportedly only oriented x 1, but is nonverbal here Continue Exelon patch, supportive care On one-to-one for pulling out PEG tube and IVs Continue Haldol 2 Mg p.o. twice daily and continue home valproic acid 250 Mg p.o. twice daily presumably for behavioral/mood reasons as there is no mention of seizure disorder on paperwork from residential Continue duloxetine (8) HTN (hypertension): Plan: Blood pressures are elevated and lisinopril on hold for acute kidney injury Amlodipine is in the external med history but is not currently on her medication reconciliation-hold for now-this may also be causing her peripheral edema so would not restart Resume home carvedilol 25 Mg p.o. twice daily (9) GERD (gastroesophageal reflux disease): Plan: Resume home Pepcid and give lansoprazole which can be placed through PEG tube if refuses p.o. Protonix (10) History of CVA (cerebrovascular accident): Plan: Mentioned in residential records, likely because of her vascular dementia Resume home aspirin 81 mg daily (11) S/P percutaneous endoscopic gastrostomy (PEG) tube placement: Plan: This was pulled out by the patient in the ER and replaced by the ER physician Cancel GI consultation This is only used as needed for medications when she refuses them by mouth Using free water flushes for now for hypernatremia Plan DVT PPx -- SCDs,add heparin Dispo-continued stay on medical unit with telemetry Full COde based on POLST from residential records I called both numbers listed for the and the number listed for the daughter and the chart and got no answers. Left voicemails for them to call back. May benefit from palliative consult and CODE STATUS discussion given severe dementia and heart failure with large pleural effusions once family member calls back. She cannot be consented for thoracentesis at this time. Admission and Anticipated Discharge Date Admission Date: January 23, 2024 Subjective Patient is sedated. Family at bedside and are updated. Review of Systems Review of Systems: Unobtainable due to cognitive status Physical Exam Constitutional: WD/WN, vitals as above + obese Eyes: + anicteric sclerae Respiratory: + tachypneic (Mild at rest); no cough Auscultation: + diminished lung sounds (At bases right greater than left); no crackles, no rhonchi and no wheezes Cardiovascular: Rate/Rhythm: regular rate and regular rhythm Heart Sounds: no murmur Extremities: + edema (2+ edema of the legs bilaterally) Gastrointestinal (Abdomen): Inspection/Auscultation: normal bowel sounds; + abdomen abnormal to inspection (PEG tube in place) and abdomen not distended Percussion/Palpation: abdomen soft; abdomen nontender Neurologic: no focal motor deficits Speech / Cognition: + expressive aphasia and + abnormal cognition Psychiatric: Orientation: alert; + not oriented x 3 Results & Data Results & Data Vital Signs (Past 12 Hours) Vital Signs Temp Pulse Resp BP Pulse Ox O2 Del Method O2 Flow Rate 01/26/24 09:54 Nasal Cannula 4 01/26/24 08:17 36.1 C L 80 20 186/85 H 89 L Nasal Cannula 4 PG Care Time/CCT Total # of Minutes Spent Total Time Spent with Patient: Total time spent is greater than 50% in coordination of care (as documented) at patient's floor/unit and/or counseling patient: Coding Level of Care Code 49438 SUB INP/OBS CARE 3/50MIN Diagnoses Acute exacerbation of congestive heart failure I50.9 Bilateral pleural effusion J90 Hypernatremia E87.0 CKD (chronic kidney disease) stage 3, GFR 30-59 ml/min N18.30 Chronic respiratory failure with hypoxia, on home oxygen therapy J96.11; Z99.81 Diabetes mellitus, type 2 E11.9 Vascular dementia F01.50 HTN (hypertension) I10 GERD (gastroesophageal reflux disease) K21.9 History of CVA (cerebrovascular accident) Z86.73 S/P percutaneous endoscopic gastrostomy (PEG) tube placement Z93.1
[2024-01-26] MEDS: acetaZOLAMIDE 250 MG in SYRINGE 0 ML IV ONE (18:07)
[2024-01-26] MEDS: lisinopril 5 MG TAB PO ONE (18:13)
[2024-01-27 08:34] LABS: Hematocrit (blood only) 40.5 % (37.0-47.0); Hemoglobin 12.2 g/dl (12.0-16.0); Mean Corpuscular Hemoglobin 28.4 pg (25.0-34.0); Mean Corpuscular Hgb Conc 30.1 g/dL (32.0-36.0); Mean Corpuscular Volume 94.4 fL (80.0-100.0); Mean Platelet Volume 10.5 fL (9.4-12.4); Platelet Count 252 K/uL (130-400); RDW Coefficient of Variation 16.1 % (11.5-14.5); RDW Standard Deviation 55.8 fL (36.4-46.3); Red Blood Count 4.29 M/uL (4.20-5.40); White Blood Count 5.39 K/ul (4.8-10.8)
[2024-01-27 08:44] LABS: Albumin Level 2.8 gm/dl (3.4-5.0); BUN Creatinine Ratio 13.2 (10-20); Bilirubin,Total 0.4 mg/dl (0.2-1.0); Creatinine Clr Calc Pharmacy 45.7 ml/min; Globulin 2.8 gm/dl (2.5-4.0); Potassium 3.8 mmol/L (3.5-5.1); Total Protein 5.6 gm/dl (6.0-8.3)
--- NOTE | 2024-01-27 08:57 | Nephrology Progress Note ---
Date of Service January 27, 2024 Assessment & Plan (1) PARUL (acute kidney injury): Plan: * PARUL on CKD related to intravascular volume contraction - resolved * Admission urine microscopy was acellular. Urinalysis revealed a concentrated sample positive for protein. UACR with high grade proteinuria. Not a candidate for biopsy or immunosuppressive therapy due to inability to cooperate w/ treatment, chronic debilitated condition (2) CKD (chronic kidney disease) stage 3, GFR 30-59 ml/min: Plan: * Presumed CKD. Admission creatinine 1.3. No prior documentation of renal disease in hospital or residential EMR, however, patient likely has underlying DKD related to poorly controlled AODM. She does have a documented history of poor glycemic control and retinopathy (3) Hypernatremia: Plan: * Corrected. Continue free water flushes 100 cc every 4 hours the PEG tube. Monitor BMP (4) Bilateral pleural effusion: Plan: * Transudative effusions related to diastolic heart failure/pulmonary hypertension * R thoracentesis w/ 1.5 L volume removal completed 01/25/24. * Expect that effusions will reoccur quickly as cause has not been corrected * I was asked by the hospitalist service to comment on whether patient is a dialysis candidate: Dialysis likely will not alleviate patient's pleural effusions. Her baseline bedridden condition requiring ATC nursing care and inability to understand/comply with medical treatments will not allow us to safely perform dialysis. It is my professional opinion that dialysis will not provide her with quality of life or significantly prolong her life. * Pulmonology has ordered IV furosemide. Patient is diuresing well. Kidney function is stable. Recommend cautious diuresis and close monitoring of kidney function * Recommend consultation w/ palliative care to define goals of care (5) Vascular dementia: Plan: * [facility] resident who is essentially bedridden and requires PEG tube for medication administration of free water administration Admission and Anticipated Discharge Date Admission Date: January 23, 2024 Subjective Mrs. Clark was evaluated in her hospital room this morning. She was awake, agitated, nonconversant. Review of Systems Review of Systems: Unobtainable due to cognitive status Physical Exam Constitutional: + ill appearing (Agitated) Eyes: PERRL, conjunctivae normal, anicteric sclerae ENMT: external ear and nose normal, oropharynx normal Neck: trachea midline, no thyromegaly Cardiovascular: RRR, no murmur, no edema Gastrointestinal (Abdomen): normal bowel sounds, soft, nontender, no hepatosplenomegaly Skin: + turgor decreased; no rashes Neurologic: Speech / Cognition: + abnormal cognition (Agitated, does not follow commands) Results & Data Vital Signs (Past 12 Hours) Vital Signs O2 Del Method O2 Flow Rate 01/27/24 00:18 Nasal Cannula 4 Laboratory Results Laboratory Results - last 24 hr 01/26/24 01/27/24 12:19 07:33 WBC 5.39 RBC 4.29 Hgb 12.2 Hct 40.5 MCV 94.4 MCH 28.4 MCHC 30.1 L RDW Std Deviation 55.8 H RDW Coeff of Laura 16.1 H Plt Count 252 MPV 10.5 Sodium 145 Potassium 3.8 Chloride 102 Carbon Dioxide 40 H Anion Gap 3 BUN 17 Creatinine 1.29 H Est Cr Clr Drug Dosing 45.7 eGFR 48.11 BUN/Creatinine Ratio 13.2 Glucose 119 H POC Glucose 139 H Calcium 9.0 Total Bilirubin 0.4 AST 9 L ALT 7 Alkaline Phosphatase 106 H Total Protein 5.6 L Albumin 2.8 L Globulin 2.8 Albumin/Globulin Ratio 1.0 PG Care Time/CCT Total # of Minutes Spent Total Time Spent with Patient: Total time spent is greater than 50% in coordination of care (as documented) at patient's floor/unit and/or counseling patient: Coding Level of Care Code 77865 SUB INP/OBS CARE 3/50MIN Diagnoses PARUL (acute kidney injury) N17.9 CKD (chronic kidney disease) stage 3, GFR 30-59 ml/min N18.30 Hypernatremia E87.0 Bilateral pleural effusion J90 Vascular dementia F01.50
[2024-01-27] MEDS ORDERED: ACETAMINOPHEN 325 MG TAB PEG PRN (09:35)
[2024-01-27] MEDS ORDERED: VALPROIC ACID SOLN 250 MG/5 ML UDC PEG SCH (09:45)
[2024-01-27 10:02] LABS: Urea Nitrogen, Random Urine 536 mg/dL
[2024-01-27] MEDS: carvediloL 12.5 MG TAB PEG ONE (10:10)
[2024-01-27] MEDS: MAGNESIUM OXIDE 400 MG TAB PEG ONE (10:10)
[2024-01-27] MEDS: VALPROIC ACID SOLN 250 MG/5 ML UDC PEG ONE (10:10)
[2024-01-27] MEDS: HALOPERIDOL ORAL SOLN 2 MG/ML PEG SCH (10:11)
[2024-01-27] MEDS: ASPIRIN 81 MG CHEW PEG SCH (10:15)
[2024-01-27] MEDS: HALOPERIDOL ORAL SOLN 2 MG/ML PEG ONE (10:16)
[2024-01-27] MEDS: FAMOTIDINE SUSP 20 MG/2.5 ML UDP NG SCH (13:16)
[2024-01-27] MEDS: carvediloL 12.5 MG TAB PEG SCH (20:14)
[2024-01-27] MEDS: VALPROIC ACID SOLN 250 MG/5 ML UDC PEG SCH (20:15)
--- NOTE | 2024-01-27 20:56 | Hospitalist Progress Note ---
Date of Service January 27, 2024 Assessment & Plan (1) Acute exacerbation of congestive heart failure: Plan: This is a 58 y/o female who presents from the [facility] with shortness of breath, hypoxemia as she had pulled off her supplemental oxygen. Also with elevated creatinine from baseline/PARUL, and she self discontinued her PEG tube in the ER. Chest x-ray with large right pleural effusion and small to moderate left pleural effusion. She was also found to be hypernatremic Also with peripheral edema She was given IV Lasix in the ER and had her PEG tube replaced Acute on chronic HFpEF Also with some acute encephalopathy likely secondary to hypernatremia in the setting of severe dementia Admitted with possible exacerbation of CHF with unknown EF as no old records available at the time of admission IV Lasix x 1 was given in the ER and now with worsening hypernatremia-hold further Lasix Chest x-ray with large pleural effusions-consult pulmonology for thoracentesis- recommended to hold off for now as she likely will not hold still for procedure Echocardiogram here with preserved EF, incomplete study due to inability to cooperate, and elevated right-sided pressures consistent with pulmonary hypertension Follow I's and O's, daily weights Hold off on further diuresis attempts at this time Continue supplemental O2 to keep pulse ox greater than 90% On 01/25/24, Patient was doing worse. required 15 liters of nasal cannula. Unable to reach family to obtain consent, emergency consent obtained for thoracocenthesis. Dr. Mo states that her pleural effusion may return. He would not recommend intubating patient given poor quality of life. Discussed with nephrology, not a candidate for dialysis as patrient would need to sit still for 4 hours 3 times a week and also this would not improve her quality of life. After procedure, was able to discuss case with and daughter, will transition to comfort measures in case patient decompensates overnight. 01/25 Patient is sedated, she required benzos overnight. Family at bedside, discussed poor quality of life due to dementia. Family is deciding on goals of care and leaning towards hospice. 01/26 PEG tube removed. Inman placed until GI can place another PEG tube in AM. xray ordered to confirm placement. Anticipate discharge to hospice on 01/27 (2) Bilateral pleural effusion: Plan: As above, most likely from heart failure Pulmonology consult appreciated (3) Hypernatremia: Plan: Sodium 150 but corrected for hyperglycemia goes up to 152 Worsened after receiving IV Lasix Is with free water deficit despite overall total body volume up Give 1 L D5W at 80 mL/h, add free water flushes 100 mL every 4 hours to PEG tube Follow BMP Encourage p.o. free water intake (4) CKD (chronic kidney disease) stage 3, GFR 30-59 ml/min: Plan: PARUL in setting of possible CKD; Cr 1.75 with baseline 1.3 or below Was given IV Lasix and creatinine is down to 1.64-holding further Lasix Hold home lisinopril, metformin Follow BMP Avoid nephrotoxins, renally dose medications when necessary (5) Chronic respiratory failure with hypoxia, on home oxygen therapy: Plan: On 3 L nasal cannula chronically, likely secondary to heart failure (6) Diabetes mellitus, type 2: Plan: Blood sugars are quite elevated here, recent hemoglobin A1c 8.1%, on Lantus 5 units daily and Humalog sliding scale as an outpatient Start Lantus 7 units daily and increase correction factor and carb ratio with NovoLog (7) Vascular dementia: Plan: With PEG tube placed to be able to administer medications in case she refuses them is what was reported by long-term. Otherwise, she is able to eat a mechanical soft diet With aphasia, and reportedly only oriented x 1, but is nonverbal here Continue Exelon patch, supportive care On one-to-one for pulling out PEG tube and IVs Continue Haldol 2 Mg p.o. twice daily and continue home valproic acid 250 Mg p.o. twice daily presumably for behavioral/mood reasons as there is no mention of seizure disorder on paperwork from long-term Continue duloxetine (8) HTN (hypertension): Plan: Blood pressures are elevated and lisinopril on hold for acute kidney injury Amlodipine is in the external med history but is not currently on her medication reconciliation-hold for now-this may also be causing her peripheral edema so would not restart Resume home carvedilol 25 Mg p.o. twice daily (9) GERD (gastroesophageal reflux disease): Plan: Resume home Pepcid and give lansoprazole which can be placed through PEG tube if refuses p.o. Protonix (10) History of CVA (cerebrovascular accident): Plan: Mentioned in long-term records, likely because of her vascular dementia Resume home aspirin 81 mg daily (11) S/P percutaneous endoscopic gastrostomy (PEG) tube placement: Plan: This was pulled out by the patient in the ER and replaced by the ER physician Cancel GI consultation This is only used as needed for medications when she refuses them by mouth Using free water flushes for now for hypernatremia Plan DVT PPx -- SCDs,add heparin Dispo-continued stay on medical unit with telemetry Full COde based on POLST from long-term records I called both numbers listed for the and the number listed for the daughter and the chart and got no answers. Left voicemails for them to call back. May benefit from palliative consult and CODE STATUS discussion given severe dementia and heart failure with large pleural effusions once family member calls back. She cannot be consented for thoracentesis at this time. Admission and Anticipated Discharge Date Admission Date: January 23, 2024 Subjective Patient has been confused today. Unable to provide history Later in the day patient removed PEG tube, discussed with GI team. Recommended to place inman in PEG tube tracr. 14 F was placed under aseptic protocol Review of Systems Review of Systems: All systems reviewed & are unremarkable except as noted in HPI & below Physical Exam Constitutional: WD/WN, vitals as above + obese Eyes: + anicteric sclerae Respiratory: + tachypneic (Mild at rest); no cough Auscultation: + diminished lung sounds (At bases right greater than left); no crackles, no rhonchi and no wheezes Cardiovascular: Rate/Rhythm: regular rate and regular rhythm Heart Sounds: no murmur Extremities: + edema (2+ edema of the legs bilaterally) Gastrointestinal (Abdomen): Inspection/Auscultation: normal bowel sounds; + abdomen abnormal to inspection (PEG tube in place) and abdomen not distended Percussion/Palpation: abdomen soft; abdomen nontender Neurologic: no focal motor deficits Speech / Cognition: + expressive aphasia and + abnormal cognition Psychiatric: Orientation: alert; + not oriented x 3 Results & Data Results & Data Vital Signs (Past 12 Hours) Vital Signs O2 Del Method O2 Flow Rate 01/27/24 11:24 Nasal Cannula 4 PG Care Time/CCT Total # of Minutes Spent Total Time Spent with Patient: Total time spent is greater than 50% in coordination of care (as documented) at patient's floor/unit and/or counseling patient: Coding Level of Care Code 57916 SUB INP/OBS CARE 350MIN Diagnoses Acute exacerbation of congestive heart failure I50.9 Bilateral pleural effusion J90 Hypernatremia E87.0 CKD (chronic kidney disease) stage 3, GFR 30-59 ml/min N18.30 Chronic respiratory failure with hypoxia, on home oxygen therapy J96.11; Z99.81 Diabetes mellitus, type 2 E11.9 Vascular dementia F01.50 HTN (hypertension) I10 GERD (gastroesophageal reflux disease) K21.9 History of CVA (cerebrovascular accident) Z86.73 S/P percutaneous endoscopic gastrostomy (PEG) tube placement Z93.1 Time Spent (min) 50
[2024-01-27] MEDS: MoRPHine SULFATE 2 MG/ML CARP IV PRN (21:27)
[2024-01-28] MEDS: LORazepam 2 MG/1 ML VIAL IV STA (02:58)
--- NOTE | 2024-01-28 07:03 | XRay Report ---
KUB CLINICAL HISTORY: PEG tube placement. FINDINGS: An AP, portable, supine abdominal radiograph is compared to study dated 01/23/2024. A gastr ostomy tube is in place. The tip projects over the stomach. No bowel obstruction is seen. There is re sidual enteric contrast throughout the colon. [id number] fecal retention is noted in the right colon. No evidence of intraperitoneal free air is seen on this supine image. There are no abnormal ab dominal calcifications. The bony structures appear intact. Layering pleural effusions are seen at bot h lung bases with dependent consolidation. IMPRESSION: 1. A gastrostomy tube is in place. 2. No bowel obstruction is seen. 3. Layering pleural effusions. Electronically signed by: Davis Orr M.D. 01/28/2024 7:02 AM
[2024-01-28] MEDS: MAGNESIUM OXIDE 400 MG TAB PEG SCH (08:06)
[2024-01-28] MEDS: POLYETHYLENE (MIRALAX) 17 GM PACK PEG SCH (08:06)
--- NOTE | 2024-01-28 08:57 | Nephrology Progress Note ---
Date of Service January 28, 2024 Assessment & Plan (1) PARUL (acute kidney injury): Plan: * PARUL on CKD related to intravascular volume contraction * Admission urine microscopy was acellular. Urinalysis revealed a concentrated sample positive for protein. UACR with high grade proteinuria. Not a candidate for biopsy or immunosuppressive therapy due to inability to cooperate w/ treatment, chronic debilitated condition * Recommend 100 cc free water feeding tube flushes q4 hrs * Patient is being transitioned to hospice care * No further nephrology testing required at this time. Will sign off. Please call if further assistance is needed (2) CKD (chronic kidney disease) stage 3, GFR 30-59 ml/min: Plan: * Presumed CKD. Admission creatinine 1.3. No prior documentation of renal d isease in hospital or [facility] EMR, however, patient likely has underlying DKD related to poorly controlled AODM. She does have a documented history of poor glycemic control and retinopathy (3) Bilateral pleural effusion: Plan: * Transudative effusions related to diastolic heart failure/pulmonary hypertension * R thoracentesis w/ 1.5 L volume removal completed 01/25/24. * Expect that effusions will reoccur quickly as cause has not been corrected * Pulmonology has ordered IV furosemide. Patient is diuresing well. Kidney function is stable. Recommend cautious diuresis and close monitoring of kidney function (4) Vascular dementia: Plan: * halfway resident who is essentially bedridden and requires PEG tube for medication administration of free water administration Admission and Anticipated Discharge Date Admission Date: January 23, 2024 Subjective Vascular dementia. Unable to provide history. Remains agitated, does not follow commands. Pulled out PEG tube last evening. GI placed new 18 Fr DINO tube Review of Systems Review of Systems: Unobtainable due to mental health condition Physical Exam Constitutional: + ill appearing (Agitated) Eyes: PERRL, conjunctivae normal, anicteric sclerae ENMT: external ear and nose normal, oropharynx normal Neck: trachea midline, no thyromegaly Cardiovascular: RRR, no murmur, no edema Gastrointestinal (Abdomen): normal bowel sounds, soft, nontender, no hepatosplenomegaly Skin: + turgor decreased; no rashes Neurologic: Speech / Cognition: + abnormal cognition (Agitated, does not follow commands) Results & Data Laboratory Results Laboratory Results - last 24 hr 01/24/24 08:30 Ur Random Urea Nitrogn 536 Laboratory Results - last 24 hr 01/28/24 08:45 Sodium 146 H Potassium 3.9 Chloride 101 Carbon Dioxide 36 H Anion Gap 9 BUN 23 Creatinine 1.62 H D Est Cr Clr Drug Dosing 36.4 eGFR 36.60 BUN/Creatinine Ratio 14.2 Glucose 201 H Calcium 9.4 PG Care Time/CCT Total # of Minutes Spent Total Time Spent with Patient: Total time spent is greater than 50% in coordination of care (as documented) at patient's floor/unit and/or counseling patient: Coding Level of Care Code 48087 SUB INP/OBS CARE 3/50MIN Diagnoses PARUL (acute kidney injury) N17.9 CKD (chronic kidney disease) stage 3, GFR 30-59 ml/min N18.30 Bilateral pleural effusion J90 Vascular dementia F01.50
[2024-01-28 09:23] LABS: BUN Creatinine Ratio 14.2 (10-20); Calcium 9.4 mg/dl (8.6-10.3); Creatinine Clr Calc Pharmacy 36.4 ml/min; Potassium 3.9 mmol/L (3.5-5.1)
--- NOTE | 2024-01-28 09:51 | Communication Note ---
Date of Service: January 28, 2024 Called to replace the PEG tube. The patient removed PEG tube yesterday. Small caliber Shafer catheter was temporarily placed into the tract. Shafer catheter was removed. An 18 [place] DINO tube was inserted without difficulties. Okay to start feedings
--- NOTE | 2024-01-30 09:53 | Discharge Summary ---
Discharge Summary Date of Service January 28, 2024 Principal Dx & Hospital Course #1 = Principal Diagnosis (1) Acute exacerbation of congestive heart failure: This is a 58 y/o female who presents from the [facility] with shortness of breath, hypoxemia as she had pulled off her supplemental oxygen. Also with elevated creatinine from baseline/PARUL, and she self discontinued her PEG tube in the ER. Chest x-ray with large right pleural effusion and small to moderate left pleural effusion. She was also found to be hypernatremic Also with peripheral edema She was given IV Lasix in the ER and had her PEG tube replaced Acute on chronic HFpEF Also with some acute encephalopathy likely secondary to hypernatremia in the setting of severe dementia Admitted with possible exacerbation of CHF with unknown EF as no old records available at the time of admission IV Lasix x 1 was given in the ER and now with worsening hypernatremia-hold further Lasix Chest x-ray with large pleural effusions-consult pulmonology for thoracentesis- recommended to hold off for now as she likely will not hold still for procedure Echocardiogram here with preserved EF, incomplete study due to inability to cooperate, and elevated right-sided pressures consistent with pulmonary hypertension Follow I's and O's, daily weights Hold off on further diuresis attempts at this time Continue supplemental O2 to keep pulse ox greater than 90% On 01/25/24, Patient was doing worse. required 15 liters of nasal cannula. Unable to reach family to obtain consent, emergency consent obtained for thoracocenthesis. Dr. Mo states that her pleural effusion may return. He would not recommend intubating patient given poor quality of life. Discussed with nephrology, not a candidate for dialysis as patrient would need to sit still for 4 hours 3 times a week and also this would not improve her quality of life. After procedure, was able to discuss case with and daughter, will transition to comfort measures in case patient decompensates overnight. 01/25 Patient is sedated, she required benzos overnight. Family at bedside, discussed poor quality of life due to dementia. Family is deciding on goals of care and leaning towards hospice. 01/26 PEG tube removed. Shafer placed until GI can place another PEG tube in AM. xray ordered to confirm placement. Anticipate discharge to hospice on 01/27 Discharged to hospice on 01/27 (2) Bilateral pleural effusion: As above, most likely from heart failure Pulmonology consult appreciated (3) Hypernatremia: Sodium 150 but corrected for hyperglycemia goes up to 152 Worsened after receiving IV Lasix Is with free water deficit despite overall total body volume up Give 1 L D5W at 80 mL/h, add free water flushes 100 mL every 4 hours to PEG tube Patient removed PEG tube; had discussion with , and hospice. is ok to not place PEG tube again as this will not improve quality of life. (4) CKD (chronic kidney disease) stage 3, GFR 30-59 ml/min: PARUL in setting of possible CKD; Cr 1.75 with baseline 1.3 or below Was given IV Lasix and creatinine is down to 1.64-holding further Lasix Hold home lisinopril, metformin Follow BMP Avoid nephrotoxins, renally dose medications when necessary (5) Chronic respiratory failure with hypoxia, on home oxygen therapy: On 3 L nasal cannula chronically, likely secondary to heart failure (6) Diabetes mellitus, type 2: Blood sugars are quite elevated here, recent hemoglobin A1c 8.1%, on Lantus 5 units daily and Humalog sliding scale as an outpatient Start Lantus 7 units daily and increase correction factor and carb ratio with NovoLog (7) Vascular dementia: Metabolic Encephalopathy With PEG tube placed to be able to administer medications in case she refuses them is what was reported by care home. Otherwise, she is able to eat a mechanical soft diet With aphasia, and reportedly only oriented x 1, but is nonverbal here Continue Exelon patch, supportive care On one-to-one for pulling out PEG tube and IVs Continue Haldol 2 Mg p.o. twice daily and continue home valproic acid 250 Mg p.o. twice daily presumably for behavioral/mood reasons as there is no mention of seizure disorder on paperwork from care home Continue duloxetine (8) HTN (hypertension): Blood pressures are elevated and lisinopril on hold for acute kidney injury Amlodipine is in the external med history but is not currently on her medication reconciliation-hold for now-this may also be causing her peripheral edema so would not restart Resume home carvedilol 25 Mg p.o. twice daily (9) GERD (gastroesophageal reflux disease): Resume home Pepcid and give lansoprazole which can be placed through PEG tube if refuses p.o. Protonix (10) History of CVA (cerebrovascular accident): Mentioned in care home records, likely because of her vascular dementia Resume home aspirin 81 mg daily (11) S/P percutaneous endoscopic gastrostomy (PEG) tube placement: This was pulled out by the patient in the ER and replaced by the ER physician Cancel GI consultation This is only used as needed for medications when she refuses them by mouth Using free water flushes for now for hypernatremia Admission HPI Per Admitting Provider Patient has dementia and cannot provide history, all of it is obtained from chart and from ER staff. This is a 58 y/o female with MHx signicant for DM2, HTN, HLD, CHF (unknown EF), with PEG tube in place, and apparently advanced dementia who is brought in from [facility] with hypoxia. Per report from [place], patient was noted to be SOB yesterday, and was started on 3L NC. She was apparently also given steroids and Rocephin. Today she was noted to not have her O2 in place, and was hypoxic and appeared to be having some more respiratory distress, so she was sent here by EMS. Patient has no c/c at this time. Not able to answer any questions. Of note, in ER patient did pull out her PEG tube. Discharge Exam Constitutional WD/WN, vitals as above + obese Eyes + anicteric sclerae Respiratory + tachypneic (Mild at rest); no cough Auscultation: + diminished lung sounds (At bases right greater than left); no crackles, no rhonchi and no wheezes Cardiovascular Rate/Rhythm: regular rate and regular rhythm Heart Sounds: no murmur Extremities: + edema (2+ edema of the legs bilaterally) Gastrointestinal (Abdomen) Inspection/Auscultation: normal bowel sounds; + abdomen abnormal to inspection (PEG tube in place) and abdomen not distended Percussion/Palpation: abdomen soft; abdomen nontender Neurologic no focal motor deficits Speech / Cognition: + expressive aphasia and + abnormal cognition Psychiatric Orientation: alert; + not oriented x 3 Discharge Plan Discharge Items Patient Disposition: Hospice - Medical Facility Reason For Visit: HYPOXIA Discharge Diagnosis: hypoxia Activity: Resume your previous activity Non-emergency contact: Primary Care Provider Call non-emergency contact if: you have any medication questions Follow-up/Referrals: Berlin Ledezma PA-C [Primary Care Provider] - Diet: Regular and Carb Consistent or DM2 Diet Comment: minced and moist Addtl Attending Provider Instructions: * Patient is being transitioned to hospice care Pending Studies at Discharge: No Stand-Alone Forms: My [facility] Skilled Items Patient informed of condition?: No DNR: Yes Discharge Level of Care: Skilled Communicable Disease: No Discharge Prognosis: Deteriorating Lines: None Urinary Catheter: No Medications and DC Order Prescriptions: New amlodipine 2.5 mg tablet 2.5 mg PO PM Qty: 30 0RF morphine concentrate 100 mg/5 mL (20 mg/mL) solution 5 mg PO Q6H PRN (Reason: pain/respiratory distress) Qty: 30 0RF lorazepam 0.5 mg tablet 0.5 mg PO Q8H PRN (Reason: anxiety) Qty: 20 0RF lansoprazole [Prevacid SoluTab] 30 mg Tablet,Disintegrat, Delay Rel 30 mg PEG QAM Qty: 30 0RF Continued carvedilol 12.5 mg Tablet 25 mg PO Q12H duloxetine 30 mg Capsule,Delayed Release(Dr/Ec) 30 mg PO DAILY metformin 500 mg tablet 500 mg PO BID ipratropium-albuterol 0.5 mg-3 mg(2.5 mg base)/3 mL solution for nebulization 3 ml INHALATION Q4H PRN (Reason: Shortness Of Breath Or Wheezing) polyethylene glycol 3350 17 gram Powder In Packet 17 g PO DAILY dextrose 40 % Gel See Rx Instructions .ROUTE .COMPLEX Rx Instructions: place and dissolve 1 application buccally as needed for hypoglycemia famotidine 20 mg tablet 20 mg PO DAILY magnesium hydroxide [Milk of Magnesia] 400 mg/5 mL Suspension 30 ml PO Q48H PRN (Reason: Constipation) valproic acid (as sodium salt) 250 mg/5 mL solution 250 mg PO Q12H bisacodyl [Dulcolax (bisacodyl)] 10 mg Suppository 10 mg MO Q48H PRN (Reason: Constipation) Enema 19-7 gram/118 mL Enema 118 ml MO Q48H PRN (Reason: Constipation) Glucagon Emergency Kit (human) 1 mg Recon Soln 1 mg IM DIRECTED PRN (Reason: Hypoglycemia) haloperidol 2 mg tablet 2 mg PO Q12H insulin lispro [Humalog KwikPen Insulin] 100 unit/mL insulin pen See Rx Instructions .ROUTE .COMPLEX Rx Instructions: per sliding scale 1f 151 -200=3 units; 201 -250 =6 units; 251 -300 =9; 301 - 400 =12 units; subcutaneously before meals and at bedtime insulin glargine [Lantus Solostar U-100 Insulin] 100 unit/mL (3 mL) insulin pen 5 unit SUBCUT HS rivastigmine [Exelon Patch] 4.6 mg/24 hour Patch 24 Hour 4.6 mg TRANSDERMAL DAILY guaifenesin [Mucinex] 1,200 mg Tablet Extended Release 12hr 400 mg PO Q12H magnesium oxide 400 mg magnesium Tablet 400 mg PO DAILY aspirin 81 mg Tablet,Delayed Release (Dr/Ec) 81 mg PO QAM acetaminophen 650 mg Tablet 650 mg PO Q6H PRN (Reason: Pain) Discontinued prednisone 20 mg Tablet 40 mg PO DAILY ceftriaxone 1 gram recon soln 1 g IM Q24H lisinopril 40 mg tablet 40 mg PO DAILY Discharge Orders: Discharge Order (Routine); Ordered 01/28/24 Ordered By: Tony Hutton Admission Data Admit Date/Time: 01/23/24 19:43 Attending Provider: Tony Hutton Admit Provider: Brayden Rose Primary Care Provider: Berlin Ledezma Other Providers: [place]emigray,; Brayden Rose; Richard Gutierrez; Jordan Salvador Other Interventions: Discharge Summary Assessment (RN) Last Done: 01/28/24 16:27 Hospital Stay Data Consultations 01/23/24 18:43 ED Decision to Admit Stat 01/24/24 07:54 Consult Pulmonology Routine 01/25/24 15:15 Consult Nephrology Routine Pending Results Patient Have Any Pending Studies at Discharge: No Discharge Instructions Given to Patient (Per Discharging Provider) * Patient is being transitioned to hospice care Total Time Total Time Spent Total Time Spent (In Minutes): 32 Coding Level of Care Code 41465 INP/OBS DISCH >30 MIN Diagnoses Acute exacerbation of congestive heart failure I50.9 Bilateral pleural effusion J90 Hypernatremia E87.0 CKD (chronic kidney disease) stage 3, GFR 30-59 ml/min N18.30 Chronic respiratory failure with hypoxia, on home oxygen therapy J96.11; Z99.81 Diabetes mellitus, type 2 E11.9 Vascular dementia F01.50 HTN (hypertension) I10 GERD (gastroesophageal reflux disease) K21.9 History of CVA (cerebrovascular accident) Z86.73 S/P percutaneous endoscopic gastrostomy (PEG) tube placement Z93.1
== END 2024-01-28 16:36 | disposition hospice, inpatient (51) | DRG 291 ==
LOC: ED 17:28 → SUATTDRO 19:43 → 2N 19:43 → 2W 01-25 17:59 → 3W 01-26 15:25
DX: Z99.81 Dependence on supplemental oxygen; Z79.82 Long term (current) use of aspirin; J96.11 Chronic respiratory failure with hypoxia; Z79.84 Long term (current) use of oral hypoglycemic drugs; F01.50 Vascular dementia, unspecified severity, without behavioral disturbance, psychotic disturbance, mood disturbance, and anxiety; Z43.1 Encounter for attention to gastrostomy; R47.01 Aphasia; I13.0 Hypertensive heart and chronic kidney disease with heart failure and stage 1 through stage 4 chronic kidney disease, or unspecified chronic kidney disease; Z79.4 Long term (current) use of insulin; T85.598A Other mechanical complication of other gastrointestinal prosthetic devices, implants and grafts, initial encounter; G93.40 Encephalopathy, unspecified; Z86.73 Personal history of transient ischemic attack (TIA), and cerebral infarction without residual deficits; I27.20 Pulmonary hypertension, unspecified; E11.22 Type 2 diabetes mellitus with diabetic chronic kidney disease; J91.8 Pleural effusion in other conditions classified elsewhere; Y92.129 Unspecified place in nursing home as the place of occurrence of the external cause; I50.33 Acute on chronic diastolic (congestive) heart failure; E87.0 Hyperosmolality and hypernatremia; N17.9 Acute kidney failure, unspecified; N18.30 Chronic kidney disease, stage 3 unspecified; Y73.2 Prosthetic and other implants, materials and accessory gastroenterology and urology devices associated with adverse incidents